=== PATIENT | female | born 1945 | race Asian ===

== ENCOUNTER 2021-01-04 08:47 | Outpatient (CLI) | payer MEDICARE, OTHER, SELFPAY ==
--- NOTE | ~2021-01-04 | DEXA_ITS ---
Bone Density Report Name: Micheal Isabel Age: 75 Sex: Female Ethnicity: Date of : 1945 Indication: osteopenia; height loss; Referring Provider: Sherley Clarke Study: Bone densitometry was performed. Exam Date: January 04, 2021 Accession number: [id number] Bone Density: Region BMD T-score Z-score Classification AP Spine (L1, L2, L3) 0.793 -2.0 0.4 Osteopenia Femoral Neck (Left) 0.620 -2.1 0.1 Osteopenia Total Hip (Left) 0.736 -1.7 0.2 Osteopenia Total Hip Bilateral Avg 0.721 -1.8 0.1 Osteopenia Femoral Neck (Right) 0.627 -2.0 0.2 Osteopenia Total Hip (Right) 0.706 -1.9 0.0 Osteopenia World Health Organization criteria for BMD impression classify patients as: Normal (T-score at or above -1.0), Osteopenia (T-score between -1.0 and -2.5), or Osteoporosis (T-score at or below -2.5). 10-year Fracture Risk(1): Major Osteoporotic Fracture 8.6% Hip Fracture 2.3% Reported Risk Factors: [place] (), Neck BMD=0.620, BMI=25.4 (1) FRAX(R) Version 3.08. Fracture probability calculated for an untreated patient. Fracture probability may be lower if the patient has received treatment. Previous Exams: Region Exam Age BMD T-score BMD Change BMD Change Date g/cm2 vs Baseline vs Previous AP Spine(L1, L2, L3) 01/04/2021 75 0.793 -2.0 -0.021(-2.5%) -0.014(-1.8%) 06/10/2018 73 0.807 -1.9 -0.006(-0.8%) -0.006(-0.8%) 12/06/2015 70 0.813 -1.9 Total Hip(Left) 01/04/2021 75 0.736 -1.7 -0.036(-4.6%)* 0.003(0.4%) 06/10/2018 73 0.732 -1.7 -0.039(-5.0%)* -0.039(-5.0%)* 12/06/2015 70 0.771 -1.4 Total Hip(Right) 01/04/2021 75 0.706 -1.9 -0.047(-6.2%)* -0.013(-1.8%) 06/10/2018 73 0.719 -1.8 -0.034(-4.5%)* -0.034(-4.5%)* 12/06/2015 70 0.753 -1.5 *Denotes significance at 95% confidence level, LSC for AP Spine = 0.022 g/cm2, LSC for Total Hip = 0.027 g/cm2 Clinical Information Provided by Patient: Has used the following medications: Vitamin D, Calcium Patient maximum height was 63 Menopause Age: 51 Drinks caffeinated beverages Onset of menses at age 13 Number of children 2 Impression: The patient has low bone mass, based on the Left Femoral Neck T-score. The patient has an estimated ten-year risk of hip fracture of 2.3% and an estimated ten-year risk of major fracture of 8.6%, based on the WHO FRAX algorithm. No significant bone loss was observed. Discussion: BONE DENSITY IS LOW AT ONE OR MOR
== END 2021-01-04 08:48 | disposition home or self-care (01) ==
LOC: ANHIMG 08:50
PROVIDERS: PCP Family Medicine; Visit Provider Physician Assistant
DX: Z78.0 Asymptomatic menopausal state (principal); M85.89 Other specified disorders of bone density and structure, multiple sites
CPT/HCPCS: 77080

== ENCOUNTER 2021-03-18 19:14 | Emergency (ER) | payer MEDICARE, OTHER, SELFPAY ==
[2021-03-18 19:24] VITALS: BP 137/80; PULSE 91; RESP 16; TEMP 36.7; O2SAT 99
--- NOTE | 2021-03-18 19:33 | ED.GENADULT ---
HPI - General Adult General Chief complaint: Wound/Laceration Stated complaint: insect bite Time Seen by Provider: 03/18/21 19:34 Source: patient, family (spouse (Micheal ok to speak in front of)) and RN notes reviewed Mode of arrival: ambulatory Limitations: no limitations History of Present Illness HPI narrative: 76-year-old [place] female presents with spouse, both complaints of red area and possible insect to right upper arm for the past 2 days. Spouse reports he removed what he believes to be a tick from the patient's RT arm 4 days ago. Nobuko reports she was working outside in [place] prior to the insect being discovered. Hydrocortisone without improvement. Denies new detergent, personal hygiene products or laundry detergents. No new foods or medications. No swelling, burning, bleeding,or drainage. Denies fever, chills, headaches, weakness, fatigue, myalgia, facial swelling, or tongue swelling. Denies dyspnea. Remains active. Tolerating p.o. intake. The patient reports she has not been diagnosed with COVID-19. The patient reports she received 2 Pfizer COVID-19 vaccines. The patient reports she is not waiting for the results of a COVID-19 lab test. The patient reports she does not have fever, chills, or weakness. The patient reports she does not have a new or worsening cough or shortness of breath. Denies chest pain. The patient reports she does not have any rhinorrhea, congestion, sore throat, loss of taste, nausea, vomiting, abdominal pain, and diarrhea. Denies recent traveling. Denies concerns for COVID-19 or exposures. At this time, the patient is not suspected of having COVID-19. Some parts of this dictation were generated by voice recognition software and may contain typographical and/or grammatical inaccuracies. Related Data Home Medications Medication Instructions Recorded Confirmed calcium carbonate 600 mg-vitamin tablet PO 10/30/19 03/02/21 D3 1,000 unit-vitamin K2 90 mcg tab cholecalciferol (vitamin D3) 50 1,000 unit PO DAILY tablet 10/30/19 03/02/21 mcg (2,000 unit) tablet multivitamin 1 tablet PO DAILY 10/30/19 03/02/21 pyridoxine (vitamin B6) 100 mg 100 mg PO DAILY 10/30/19 03/02/21 tablet aspirin [Adult Aspirin] PO 03/18/21 hydrocortisone applic 03/18/21 Allergies Allergy/AdvReac Type Severity Reaction Status Date / Time No Known Allergies Allergy Verified 03/02/21 11:10 Review of Systems Review of Systems: Narrative: CONSTITUTIONAL: Denies fever, chills, sweats. EYES: Denies visual changes, redness, discharge. ENT: Denies otalgia, rhinorrhea, congestion, sore throat. CARDIOVASCULAR: Denies chest pain, palpitations, edema. RESPIRATORY: Denies dyspnea, wheezing, cough. GASTROINTESTINAL: Denies abdominal pain, nausea, vomiting, diarrhea. GENITOURINARY: Denies dysuria, hematuria, abnormal discharge. SKIN: Complaints of red area and possible piece of insect to right upper arm. Denies drainage. MUSCULOSKELETAL: Denies acute back pain, joint pain, or myalgia. NEUROLOGIC: Denies numbness or focal weakness. PSYCHIATRIC: Denies anxiety or depression. All systems reviewed & are unremarkable except as noted in HPI and below. [facility] Past Medical History Medical History (Updated 03/26/21 @ 21:09 by TOI Fuller) Essential (primary) hypertension Mixed hyperlipidemia Osteopenia Overweight (BMI 25.0-29.9) Type 2 diabetes mellitus with other diabetic neurological complication Surgical History Surgical History (Updated 03/18/21 @ 19:46 by TOI Fuller) History of coronary artery stent placement History of left oophorectomy Family History Family History (Updated 03/18/21 @ 19:47 by TOI Fuller) Father , Natural cause Unknown family medical history Mother , Natural cause Unknown family medical history Social History Social History (Updated 03/26/21 @ 21:01 by TOI Fuller) Smoking status: Never smoker Tobacco
--- NOTE | 2021-03-18 20:17 | PC.NURSE ---
[facility] called and medication ordered to [facility] [address].
== END 2021-03-18 20:12 | disposition home or self-care (01) ==
PROVIDERS: Emergency Provider Nurse Practitioner Family; PCP Family Medicine
DX: S40.861A Insect bite (nonvenomous) of right upper arm, initial encounter (principal); W57.XXXA Bitten or stung by nonvenomous insect and other nonvenomous arthropods, initial encounter; I10 Essential (primary) hypertension; E78.2 Mixed hyperlipidemia; M81.0 Age-related osteoporosis without current pathological fracture; E11.42 Type 2 diabetes mellitus with diabetic polyneuropathy; I25.10 Atherosclerotic heart disease of native coronary artery without angina pectoris; Z95.5 Presence of coronary angioplasty implant and graft
CPT/HCPCS: 99213; G0463

== ENCOUNTER 2021-09-13 16:06 | Outpatient (CLI) | payer MEDICARE, OTHER, SELFPAY ==
--- NOTE | ~2021-09-13 | XR_ITS ---
XR knee RT min 4V 09/13/2021 16:37 Indication: Right knee pain Procedure: 5 views right knee Comparison: No prior studies for comparison. Findings: No fracture, subluxation or dislocation. No significant joint effusion. No joint space narr owing. No focal soft tissue abnormality. There is a punctate radiodensity medial to the femoral diaph ysis, possibly calcification or foreign body. Impression: 1: No significant bone or joint abnormality. Reviewed, dictated and finalized at location [facility]. [employer] Impression: 1: No significant bone or joint abnormality.
== END 2021-09-13 16:07 | disposition home or self-care (01) ==
LOC: ANHIMG 16:13
PROVIDERS: PCP Family Medicine; Visit Provider Physician Assistant Medical
DX: M25.561 Pain in right knee (principal)
CPT/HCPCS: 73564

== ENCOUNTER 2022-08-13 09:17 | Outpatient (CLI) | payer MEDICARE, OTHER, SELFPAY ==
[2022-08-13 18:53] LABS: Hemoglobin A1C 6.9 % (<5.7)
[2022-08-13 19:12] LABS: Creatinine Urine 125.3 mg/dL
[2022-08-13 19:16] LABS: MALB Creatinine Ratio 115.7 mg/g (0-30)
[2022-08-13 19:24] LABS: Cholesterol 207 mg/dL (0-200); HDL Direct 39 mg/dL; Triglycerides 435 mg/dL (<150)
[2022-08-13 19:35] LABS: LDL Cholesterol Direct 91 mg/dL
== END 2022-08-13 09:18 | disposition home or self-care (01) ==
LOC: ANHGOSHLAB 09:20
PROVIDERS: PCP Family Medicine; Visit Provider Family Medicine
DX: E78.2 Mixed hyperlipidemia (principal); E11.49 Type 2 diabetes mellitus with other diabetic neurological complication
CPT/HCPCS: 36415; 80061; 82043; 83036

== ENCOUNTER 2022-12-02 15:00 | Emergency (ER) | payer MEDICARE, OTHER, SELFPAY ==
[2022-12-02] VITALS (21 sets, daily range): BP systolic 130–201; BP diastolic 80–95; PULSE 63–81; RESP 13–23; TEMP 36.8; O2SAT 95–100
--- NOTE | ~2022-12-02 | XR_ITS ---
EXAMINATION: XR chest 2V DATE: 12/02/2022 16:26 INDICATION: Left-sided chest pain TECHNIQUE: PA and lateral views of the chest are obtained. COMPARISON: 06/02/2019 FINDINGS: The lungs are free of acute opacities. No pleural effusion or pneumothorax. The cardiomedia stinal silhouette is normal. There is moderate thoracic spondylosis. IMPRESSION: 1. No acute cardiopulmonary abnormality. Reviewed, dictated and finalized at location F. CHAIRMAN
--- NOTE | ~2022-12-02 | CT_ITS ---
EXAMINATION: CTA chest abdomen pelvis DATE: 12/02/2022 20:01 INDICATION: Chest pain radiating to the abdomen TECHNIQUE: Computed tomographic angiography (CTA) of the chest, abdomen, and pelvis was performed wit hout and with 100 mL Omnipque-350 intravenous contrast. Maximum intensity projection 3D-reconstructio ns of the aorta and other arteries were constructed by the technologist on a separate workstation. Th e dose-length product (DLP) was 450.09 mGy-cm. Automated exposure control and iterative reconstructio n technique were employed. COMPARISON: None. FINDINGS: CHEST CTA: No aneurysm or dissection of the thoracic aorta. Calcified coronary artery atherosclerosis is noted. No pleural effusion or pneumothorax. There is mild dependent atelectasis. A calcified nodule of the r ight middle lobe is consistent with old granulomatous disease. No pathologically enlarged thoracic ly mph nodes are identified. The heart size is normal. There is moderate thoracic spondylosis. ABDOMEN AND PELVIS CTA: No aneurysm or dissection of the abdominal aorta. The celiac axis, superior mesenteric artery, and in ferior mesenteric artery are normal at their origins. The left gastric artery arises directly from th e aorta. There are single renal arteries. The liver, spleen, pancreas, gallbladder, and adrenal gland s are normal. Cysts of the kidneys measure up to 3.4 cm on the left. There is a 4 mm nonobstructing s tone of the right kidney. No pathologically enlarged abdominal or pelvic lymph nodes are identified. No free intraperitoneal gas or evidence of bowel obstruction. There is moderate lumbar spondylosis. IMPRESSION: 1. No aneurysm or dissection of the aorta. Reviewed, dictated and finalized at location F. GER OF LEARNING
--- NOTE | 2022-12-02 15:23 | ECG_ITS ---
Measurements Intervals [place] Rate: 73 P: 30 [place]: 176 QRS: 8 QRSD: 90 T: 59 QT: 437 QTc: 483 Interpretive Statements SINUS RHYTHM NORMAL ECG COMPARED TO ECG 06/02/2019 12:42:02 NO SIGNIFICANT CHANGES Electronically Signed On 12-03-2022 9:58:05 OFFICE SPECIALIST by Trenton Power D.O.
[2022-12-02 15:45] LABS: Basophils Percent Auto 0.4 % (0.2-1.2); Eosinophils Absolute Auto 0.1 K/mm3 (0-0.3); Hemoglobin 13.9 g/dL (12.0-15.0); Immature Granulocyte Absolute 0.03 K/mm3 (0.00-0.031); Immature Granulocyte Percent A 0.3 % (0-0.5); Lymphocytes Absolute Auto 2.72 K/mm3 (0.9-3.2); Lymphocytes Percent Auto 30.5 % (18.3-44.2); Mean Corpuscular HGB Conc 33.9 g/dl (32-36); Mean Corpuscular Hemoglobin 32.2 pg (26-34); Mean Corpuscular Volume 94.9 fl (80-100); Mean Platelet Volume 9.5 fl (7.4-10.4); Monocytes Absolute Auto 0.7 K/mm3 (0.1-0.6); Monocytes Percent Auto 7.3 % (2.6-8.5); Neutrophils Absolute Auto 5.4 K/mm3 (1.3-6.7); Neutrophils Percent Auto 60.5 % (45.5-73.1); Platelet Count Result 189 k/mm3 (150-375); Red Blood Count 4.32 M/mm3 (4.2-5.4); Red Cell Distribution Width 12.3 % (11.5-14.5); White Blood Count 8.9 K/mm3 (4.5-10.0)
[2022-12-02 15:56] LABS: Alanine Aminotransferase 22 U/L (6-35); Albumin Level 4.9 g/dL (3.5-5.1); Alkaline Phosphatase 92 U/L (38-126); Anion Gap 11 mmol/L (8-16); Aspartate Amino Transferase 30 U/L (14-36); Bilirubin,Total 1.2 mg/dL (0.2-1.3); Blood Urea Nitrogen 15 mg/dL (7-17); Calcium 9.1 mg/dL (8.4-10.2); Carbon Dioxide 25 mmol/L (22-30); Chloride 106 mmol/L (98-107); Estimated CRCL calculation 36 ml/min; Estimated Glomerular Filt Rate > 60; Glucose 144 mg/dL (65-110); Lipase 111 U/L (23-300); Potassium 3.5 mmol/L (3.4-5.0); Sodium 142 mmol/L (137-145)
[2022-12-02 15:59] LABS: Appearance Urine Clear (Clear); Bilirubin Urine 1+ (Negative); Blood Urine 3+ (Negative); Color Urine Yellow (Yellow); Glucose Urine UA Negative (Negative); Ketones Urine Trace mg/dL (Negative); Leukocyte Esterase Ur Negative LEU/UL (Negative); Nitrate Urine Negative (Negative); Protein Urine 3+ mg/dL (Negative); Specific Grav Ur >= 1.030 (1.001-1.035); Urobilinogen Urine 0.2 mg/dL (<2.0)
[2022-12-02 15:59] LABS: Prothrombin Time 12.8 Seconds (11.1-14.7)
[2022-12-02 16:00] LABS: Partial Thromboplastin Time 28.2 SECONDS (22.3-36.8)
[2022-12-02 16:08] LABS: Troponin I < 0.012 ng/mL (0.000-0.034)
[2022-12-02 16:41] LABS: Add Urine Microscopic? YES
[2022-12-02 16:43] LABS: RBC Urine 51-100 /hpf (0-2)
[2022-12-02 16:44] LABS: Squamous Epithelial Cell Urine Few /hpf (Few); WBC Urine 0-5 /hpf
[2022-12-02 16:45] LABS: Calcium Oxalate Crystals Urine Present /hpf
--- NOTE | 2022-12-02 18:43 | ED.CHESTPAIN ---
HPI - Chest Pain General Chief Complaint: Chest Pain Stated Complaint: abd pain Time Seen by Provider: 12/02/22 18:29 Source: patient, RN notes reviewed and old records reviewed Mode of arrival: ambulatory Limitations: no limitations History of Present Illness HPI narrative: This is a 77 year old female with history of hypertension, hyperlipidemia, CAD s/p stent who presents for evaluation of chest and abdominal pain. Patient states this afternoon developed left chest pain that radiated her left lower abdomen. Her pain lasted a few hours. It has currently resolved. Her reports patient was dry heaving. She denies cough , fever, chills, sob. She reports her coronary stents were placed in the 90s . Related Data Home Medications Medication Instructions Recorded Confirmed cholecalciferol (vitamin D3) 50 1,000 unit PO DAILY 10/30/19 08/14/22 mcg (2,000 unit) tablet multivitamin 1 tablet PO DAILY 10/30/19 08/14/22 pyridoxine (vitamin B6) 100 mg 100 mg PO DAILY 10/30/19 08/14/22 tablet aspirin 81 mg tablet PO 03/18/21 08/14/22 omega 0-tws-ouy-fish oil 1,000 mg 1 cap PO DAILY 08/14/22 08/14/22 (120 mg-180 mg) capsule (Fish Oil) Allergies Allergy/AdvReac Type Severity Reaction Status Date / Time No Known Allergies Allergy Verified 08/14/22 10:08 Review of Systems Constitutional: Constitutional: Denies weakness Cardiovascular: Cardiovascular: Reports chest pain, Denies syncope, Denies rapid heart rate, Denies irregular heart rhythm, Denies leg edema and Denies dyspnea Respiratory: Respiratory: Denies chest congestion, Denies hemoptysis, Denies excessive phlegm production and Denies dyspnea Gastrointestinal: Gastrointestinal: Reports abdominal pain, Denies hematochezia, Denies diarrhea and Denies vomiting Genitourinary: Genitourinary: Denies hematuria and Denies dysuria Musculoskeletal: Musculoskeletal: Denies joint swelling, Denies loss of height and Denies muscle weakness Neurologic: Denies syncope, Denies focal weakness and Denies weakness PMFSH Past Medical History Medical History Essential (primary) hypertension Mixed hyperlipidemia Osteopenia Overweight (BMI 25.0-29.9) Type 2 diabetes mellitus with other diabetic neurological complication Surgical History Surgical History History of coronary artery stent placement History of left oophorectomy Family History Family History Father , Natural cause Unknown family medical history Mother , Natural cause Unknown family medical history Social History Social History Smoking status: Never smoker Second hand tobacco smoke exposure: No Alcohol intake: current Substance use: never Lack of Transportation: No Lack of Food: Never True Current Housing: Decline to Answer Concerned About Future Housing: Decline to Answer Difficulty Paying Gas/Electric Bills: No Difficulty Paying for Meds: No Currently Unemployed: No Education: High School Diploma/GED Difficulty w/ Childcare or Family Care: No Living arrangements: with family Occupation/Education: retired Gender identity (if verbalized by the patient): Female Sexual Orientation (if Verbalized by the Patient): Straight or Heterosexual Exam Const: General: alert Nutritional Appearance: well nourished Orientation/consciousness: patient oriented x3 HENMT: Head: normal to inspection Face and sinus: normal facial exam Eyes: EOM: EOMs intact bilaterally Neck: Neck: normal visual inspection Chest: Chest palpation & inspection: normal inspection of the chest Resp: Effort & Inspection: normal respiratory effort Auscultation: clear to auscultation bilaterally Cardio: Rate: regular rate Rhythm: regular rhythm Heart soun
[2022-12-02] MEDS: ASPIRIN 81 MG CHEWABLE TABLET 324 MG PO (19:03)
[2022-12-02 19:15] LABS: Troponin I < 0.012 ng/mL (0.000-0.034)
== END 2022-12-02 22:00 | disposition home or self-care (01) ==
PROVIDERS: Emergency Medicine; Emergency Provider General Practice; PCP Family Medicine
DX: N20.0 Calculus of kidney (principal); R07.89 Other chest pain; R10.32 Left lower quadrant pain; I10 Essential (primary) hypertension; E78.5 Hyperlipidemia, unspecified; E11.9 Type 2 diabetes mellitus without complications
CPT/HCPCS: 36415; 71046; 71275; 74174; 80053; 81001; 83690; 84484; 85025; 85610; 85730; 93005; 99284; A9270; Q9967

== ENCOUNTER 2022-12-10 09:08 | Outpatient (CLI) | payer MEDICARE, OTHER, SELFPAY ==
[2022-12-10 18:27] LABS: Hematocrit 42.6 % (37.0-47.0); Hemoglobin 14.2 g/dL (12.0-15.0); Mean Corpuscular HGB Conc 33.3 g/dl (32-36); Mean Corpuscular Hemoglobin 32.4 pg (26-34); Mean Corpuscular Volume 97.3 fl (80-100); Mean Platelet Volume 9.9 fl (7.4-10.4); Platelet Count Result 245 k/mm3 (150-375); Red Blood Count 4.38 M/mm3 (4.2-5.4); Red Cell Distribution Width 12.7 % (11.5-14.5); White Blood Count 5.8 K/mm3 (4.5-10.0)
[2022-12-10 20:15] LABS: Alanine Aminotransferase 27 U/L (6-35); Albumin Level 5.1 g/dL (3.5-5.1); Alkaline Phosphatase 82 U/L (38-126); Anion Gap 8 mmol/L (8-16); Aspartate Amino Transferase 57 U/L (14-36); Blood Urea Nitrogen 11 mg/dL (7-17); Calcium 9.2 mg/dL (8.4-10.2); Carbon Dioxide 30 mmol/L (22-30); Chloride 100 mmol/L (98-107); Cholesterol 228 mg/dL (0-200); Estimated Glomerular Filt Rate > 60; Glucose 119 mg/dL (65-110); HDL Direct 51 mg/dL; Potassium 3.6 mmol/L (3.4-5.0); Sodium 138 mmol/L (137-145); Triglycerides 285 mg/dL (<150)
[2022-12-10 20:21] LABS: Vitamin D 25 Hydroxy 52.9 ng/mL
[2022-12-10 20:26] LABS: LDL Cholesterol Direct 106 mg/dL
[2022-12-10 20:28] LABS: Microalbumin Urine Random 60.3 mg/L (0-16.7)
[2022-12-10 20:29] LABS: MALB Creatinine Ratio 61.5 mg/g (0-30)
[2022-12-10 20:35] LABS: Hemoglobin A1C 6.2 % (<5.7)
== END 2022-12-10 09:09 | disposition home or self-care (01) ==
LOC: ANHGOSHLAB 09:09
PROVIDERS: PCP Family Medicine; Visit Provider Nurse Practitioner
DX: Z13.29 Encounter for screening for other suspected endocrine disorder (principal); R41.3 Other amnesia; E78.5 Hyperlipidemia, unspecified; Z13.21 Encounter for screening for nutritional disorder; E11.9 Type 2 diabetes mellitus without complications; E55.9 Vitamin D deficiency, unspecified
CPT/HCPCS: 36415; 80053; 80061; 82043; 82306; 83036; 84443; 85027

== ENCOUNTER 2023-04-22 08:58 | Outpatient (CLI) | payer MEDICARE, OTHER, SELFPAY ==
[2023-04-22 21:07] LABS: Alanine Aminotransferase 20 U/L (6-35); Albumin Level 4.6 g/dL (3.5-5.1); Alkaline Phosphatase 70 U/L (38-126); Anion Gap 10 mmol/L (8-16); Aspartate Amino Transferase 48 U/L (14-36); Bilirubin,Total 1.9 mg/dL (0.2-1.3); Blood Urea Nitrogen 17 mg/dL (7-17); Calcium 9.1 mg/dL (8.4-10.2); Carbon Dioxide 28 mmol/L (22-30); Chloride 102 mmol/L (98-107); Cholesterol 179 mg/dL (0-200); Estimated Glomerular Filt Rate > 60; Glucose 120 mg/dL (65-110); HDL Direct 51 mg/dL; Potassium 3.8 mmol/L (3.4-5.0); Sodium 140 mmol/L (137-145); Triglycerides 219 mg/dL (<150)
[2023-04-22 21:18] LABS: LDL Cholesterol Direct 73 mg/dL
[2023-04-22 22:09] LABS: Hemoglobin A1C 6.3 % (<5.7)
== END 2023-04-22 08:59 | disposition home or self-care (01) ==
LOC: ANHGOSHLAB 09:01
PROVIDERS: PCP Family Medicine; Visit Provider Family Medicine
DX: E11.9 Type 2 diabetes mellitus without complications (principal); E78.5 Hyperlipidemia, unspecified; Z79.899 Other long term (current) drug therapy
CPT/HCPCS: 36415; 80053; 80061; 83036

== ENCOUNTER 2023-04-30 12:24 | Outpatient (CLI) | payer MEDICARE, OTHER, SELFPAY ==
--- NOTE | 2023-04-30 12:28 | ECG_ITS ---
Measurements Intervals [place] Rate: 86 P: 38 NE: 165 QRS: 37 QRSD: 86 T: 61 QT: 393 QTc: 471 Interpretive Statements SINUS RHYTHM POSSIBLE LEFT ATRIAL ENLARGEMENT [-0.1mV P WAVE IN V1/V2] COMPARED TO ECG 12/02/2022 15:28:36 NO SIGNIFICANT CHANGES Electronically Signed On 04-30-2023 13:51:31 CDT by Bibiana Lisa M.D.
== END 2023-04-30 12:25 | disposition home or self-care (01) ==
PROVIDERS: PCP Family Medicine; Visit Provider Family Medicine
DX: R07.9 Chest pain, unspecified (principal)
CPT/HCPCS: 93005

== ENCOUNTER 2023-05-24 13:34 | Outpatient (CLI) | payer MEDICARE, OTHER, SELFPAY ==
[2023-05-24 18:16] LABS: Alanine Aminotransferase 24 U/L (6-35); Albumin Level 4.7 g/dL (3.5-5.1); Alkaline Phosphatase 79 U/L (38-126); Aspartate Amino Transferase 65 U/L (14-36); Bilirubin,Total 1.5 mg/dL (0.2-1.3)
== END 2023-05-24 13:35 | disposition home or self-care (01) ==
LOC: ANHGOSHLAB 13:37
PROVIDERS: PCP Family Medicine; Visit Provider Family Medicine
DX: R74.8 Abnormal levels of other serum enzymes (principal)
CPT/HCPCS: 36415; 80076

== ENCOUNTER 2023-06-06 08:24 | Outpatient (CLI) | payer MEDICARE, OTHER, SELFPAY ==
--- NOTE | 2023-06-06 08:38 | ECHO_ITS ---
Patient Info Name: Micheal Isabel Age: 78 years : 1945 Gender: Female Ht: 63 in Wt: 139 lbs BSA: 1.68 m2 HR: 72 bpm BP: 174 / 103 mmHg Technical Quality: Fair Exam Date: 06/06/2023 8:42 AM Exam Location: [facility] Patient Status: Outpatient Admit Date: 06/06/2023 Staff Ordering Physician: Zina Landeros DO Supervisor Cloth Winding: Alka Gary RDCS Attending Provider: Zina Landeros DO Referring Physician: Leti MEDLEY; Exam Type: CA echo doppler color flow Study Info Indications R07.9 - Chest pain, unspecified Complete two-dimensional, color flow and Doppler transthoracic echocardiogram is performed. Summary 1. Complete two-dimensional, color flow and Doppler transthoracic echocardiogram is performed. 2. Left ventricular chamber dimension is normal. 3. Left ventricular systolic function is normal, estimated at 60-65%. 4. There is mild concentric increased left ventricular wall thickness. 5. The left ventricular diastolic function is grade I diastolic dysfunction. 6. E/e' 16 is elevated. 7. Global longitudinal strain is normal at -17.2%. 8. Left atrial chamber dimension is mildly enlarged. 9. There is mild aortic valve sclerosis. 10. The mitral valve has mildly calcified leaflets and moderately calcified annulus. 11. There is trace tricuspid valve regurgitation. 12. No pulmonary hypertension, estimated pulmonary arterial systolic pressure is 28 mmHg. Left Ventricle E/e' 16 is elevated. Global longitudinal strain is normal at -17.2%. Left ventricular chamber dimension is normal. Left ventricular systolic function is normal, estimated at 60-65%. There is mild concentric increased left ventricular wall thickness. The left ventricular diastolic function is grade I diastolic dysfunction. Right Ventricle Right ventricular systolic function is normal and with normal TAPSE 2.0 cm. Right ventricular chamber dimension is normal. Left Atria Left atrial chamber dimension is mildly enlarged. Right Atria Right atrial chamber dimension is normal. Aortic Valve The aortic valve is trileaflet. There is mild aortic valve sclerosis. There is no aortic valve stenosis. There is no aortic valve regurgitation. Pulmonic Valve There is no pulmonic regurgitation. Mitral Valve The mitral valve has mildly calcified leaflets and moderately calcified annulus. There is no mitral valve stenosis. There is no mitral valve regurgitation. Tricuspid Valve There is trace tricuspid valve regurgitation. No pulmonary hypertension, estimated pulmonary arterial systolic pressure is 28 mmHg. Pericardium/Pleural There is no pericardial effusion. Inferior Vena Cava Normal inferior vena cava with >50% collapse upon inspiration consistent with normal right atrial pressure, 5 mmHg. Aorta The aortic root size at the sinus of Valsalva is normal. Left Ventricular Outflow Tract Name Value Normal LVOT 2D LVOT Diameter 2.0 cm LVOT Doppler LVOT Peak Gradient 3 mmHg LVOT Mean Gradient 2 mmHg LVOT VTI 19 cm LVOT VTI/AV VTI Ratio 0.9 LVOT Stroke Volume 59 ml
== END 2023-06-06 08:25 | disposition home or self-care (01) ==
LOC: ANHCARD 08:25
PROVIDERS: PCP Family Medicine; Visit Provider Family Medicine
DX: R07.9 Chest pain, unspecified (principal)
CPT/HCPCS: 93306

== ENCOUNTER 2023-09-09 08:51 | Outpatient (CLI) | payer MEDICARE, OTHER, SELFPAY ==
[2023-09-09 19:32] LABS: Hepatitis B Surface Antigen Negative (Negative)
[2023-09-09 19:38] LABS: HAV RESULT Negative (Negative); Hepatitis B Core IgM Result Negative (Negative)
[2023-09-09 19:50] LABS: Hepatitis C Virus Antibody Negative (Negative)
[2023-09-09 19:59] LABS: Iron 126 ug/dL (37-170)
[2023-09-09 20:07] LABS: Alanine Aminotransferase 22 U/L (6-35); Albumin Level 4.4 g/dL (3.5-5.1); Alkaline Phosphatase 71 U/L (38-126); Aspartate Amino Transferase 41 U/L (14-36); Bilirubin,Total 1.3 mg/dL (0.2-1.3)
[2023-09-09 20:11] LABS: Percent Iron Saturation 43 % (20-50)
[2023-09-12 06:15] LABS: Mitochondrial (M2) Ab (IgG) <=20.0 U (<=20.0)
== END 2023-09-09 08:52 | disposition home or self-care (01) ==
LOC: ANHGOSHLAB 08:54
PROVIDERS: PCP Family Medicine; Visit Provider Family Medicine
DX: R74.8 Abnormal levels of other serum enzymes (principal); R17 Unspecified jaundice; Z79.899 Other long term (current) drug therapy
CPT/HCPCS: 36415; 80074; 80076; 82728; 83520; 83540; 83550

== ENCOUNTER 2023-12-17 01:23 | Day surgery (SDC) | payer MEDICARE, OTHER, SELFPAY ==
[2023-10-14 11:43] VITALS: BMI 23.0
--- NOTE | 2023-11-05 10:17 | SUR.PREOP ---
Patient called regarding upcoming procedure. Reviewed preop instructions, appointment times, and procedure prep.
[2023-12-09 14:24] VITALS: BMI 23.0
[2023-12-17 10:02] VITALS: BP 111/96; PULSE 102; RESP 20; TEMP 36.4; O2SAT 97
[2023-12-17] MEDS: LACTATED RINGERS 1,000 ML 150 ML IV CONT (10:16)
[2023-12-17 10:17] LABS: Glucose Point of Care 158 mg/dl (65-105)
--- NOTE | 2023-12-17 10:40 | WPDANESEPPF ---
Anes - Initial Pre Proc Eval Procedure: Operation Date: 12/17/23 11:30 Proposed Procedures p Colonoscopy - Tin Carrion MD Date/Time: 12/17/23 10:40 Surgeon: Tin Carrion MD Pre Op Diagnosis: hx of colon polyps Patient Data Age: 78 Gender: F Height: 1.6 m Weight: 61.7 kg Last Vital Signs Temp 97.5 F L 12/17/23 10:02 Pulse 102 H 12/17/23 10:02 Resp 20 12/17/23 10:02 BP 111/96 H 12/17/23 10:02 Pulse Ox 97 12/17/23 10:02 O2 Del Method Room Air 12/17/23 10:02 Allergies Allergy/AdvReac Type Severity Reaction Status Date / Time No Known Allergies Allergy Verified 12/17/23 10:01 Home Medications Medication Instructions Recorded Confirmed Type cholecalciferol (vitamin D3) 50 1,000 unit PO DAILY 10/30/19 10/14/23 History mcg (2,000 unit) tablet multivitamin 1 tablet PO DAILY 10/30/19 10/14/23 History pyridoxine (vitamin B6) 100 mg 100 mg PO DAILY 10/30/19 10/14/23 History tablet omega 7-dwx-rzd-fish oil 1,000 mg 1 cap PO DAILY 08/14/22 10/14/23 History (120 mg-180 mg) capsule (Fish Oil) aspirin 81 mg tablet 81 mg PO DAILY 02/01/23 10/14/23 History atorvastatin 20 mg tablet 20 mg PO DAILY 02/01/23 10/14/23 History losartan 50 mg tablet See Rx Instructions .Route 05/01/23 10/14/23 Rx .COMPLEX #90 tabs metformin 500 mg tablet See Rx Instructions .Route 05/01/23 10/14/23 Rx .COMPLEX #180 tabs Laboratory Tests 12/17/23 10:09 POC Capillary Glucose 158 H mg/dl (65-105) Patient hx anesthesia problems: none Family hx anesthesia problems: none Results Review: All pre-operative results and documents have been reviewed as part of the pre-operative evaluation. [facility] Past Medical History Medical History (Updated 09/10/23 @ 09:36 by Ofelia Pineda, COUNTER WEIGHER-C) Essential (primary) hypertension Mixed hyperlipidemia Osteopenia Overweight (BMI 25.0-29.9) Type 2 diabetes mellitus with other diabetic neurological complication Surgical History Surgical History History of coronary artery stent placement History of left oophorectomy Family History Family History Father , Natural cause Unknown family medical history Mother , Natural cause Unknown family medical history Social History Social History Smoking status: Never smoker Second hand tobacco smoke exposure: No Alcohol intake: never Substance use: never Substance use type: does not use Lack of Transportation: No Lack of Food: Never True Current Housing: Decline to Answer Concerned About Future Housing: Decline to Answer Difficulty Paying Gas/Electric Bills: No Difficulty Paying for Meds: No Currently Unemployed: No Education: High School Diploma/GED Difficulty w/ Childcare or Family Care: No Living arrangements: with family Additional living arrangements comments: with sp Occupation/Education: retired Gender identity (if verbalized by the patient): Female Sexual Orientation (if Verbalized by the Patient): Straight or Heterosexual Spiritual care concerns: No Anes - Eval Final PreProcedure Day of Procedure 12/17/23 10:40 Patient weight: normal Heart: regular rate and rhythm Lungs: clear to auscultation Airway: Mallampati scale class II Neurological: alert and oriented Last oral intake: >/= 8 hours ASA classification: III Emergent: no Anesthetic plan: proceed Anesthesia type and monitoring: general GIVS and standard monitoring Results Review: All pre-operative results and documents have been reviewed as part of the pre-operative evaluation. Informed Consent: The patient's anesthetic plan and its attendant risks and benefits were discussed with the patient/family/POA. Questions were solicited and answers provided to the satisfaction of
--- NOTE | 2023-12-17 11:03 | PM.HPGS ---
History of Present Illness History of Present Illness Consent: Risks, benefits, and alternatives have been discussed and questions answered. Patient agrees to proceed with procedure. Chief complaint: hx of colon polyps Narrative: Micheal Isabel is a 78 year old female with colon polyp in 2017 Review of Systems Review of Systems: All systems reviewed & are unremarkable except as noted in HPI and below PMFSH Past Medical History Medical History (Updated 09/10/23 @ 09:36 by URI Hidalgo) Essential (primary) hypertension Mixed hyperlipidemia Osteopenia Overweight (BMI 25.0-29.9) Type 2 diabetes mellitus with other diabetic neurological complication Surgical History Surgical History History of coronary artery stent placement History of left oophorectomy Family History Family History Father , Natural cause Unknown family medical history Mother , Natural cause Unknown family medical history Social History Social History Smoking status: Never smoker Second hand tobacco smoke exposure: No Alcohol intake: never Substance use: never Substance use type: does not use Lack of Transportation: No Lack of Food: Never True Current Housing: Decline to Answer Concerned About Future Housing: Decline to Answer Difficulty Paying Gas/Electric Bills: No Difficulty Paying for Meds: No Currently Unemployed: No Education: High School Diploma/GED Difficulty w/ Childcare or Family Care: No Living arrangements: with family Additional living arrangements comments: with sp Occupation/Education: retired Gender identity (if verbalized by the patient): Female Sexual Orientation (if Verbalized by the Patient): Straight or Heterosexual Spiritual care concerns: No Meds Home Medications and Allergies Home Medications Medication Instructions Recorded Confirmed Type cholecalciferol (vitamin D3) 50 1,000 unit PO DAILY 10/30/19 10/14/23 History mcg (2,000 unit) tablet multivitamin 1 tablet PO DAILY 10/30/19 10/14/23 History pyridoxine (vitamin B6) 100 mg 100 mg PO DAILY 10/30/19 10/14/23 History tablet omega 1-aep-xdn-fish oil 1,000 mg 1 cap PO DAILY 08/14/22 10/14/23 History (120 mg-180 mg) capsule (Fish Oil) aspirin 81 mg tablet 81 mg PO DAILY 02/01/23 10/14/23 History atorvastatin 20 mg tablet 20 mg PO DAILY 02/01/23 10/14/23 History losartan 50 mg tablet See Rx Instructions .Route 05/01/23 10/14/23 Rx .COMPLEX #90 tabs metformin 500 mg tablet See Rx Instructions .Route 05/01/23 10/14/23 Rx .COMPLEX #180 tabs Allergies Allergy/AdvReac Type Severity Reaction Status Date / Time No Known Allergies Allergy Verified 12/17/23 10:01 Vital Signs Vital Signs - 24 hr 12/17/23 10:02 Temperature 97.5 F L Pulse Rate 102 H Respiratory Rate 20 Blood Pressure 111/96 H Pulse Oximetry 97 Oxygen Delivery Room Air Exam Const: General: comfortable and no acute distress HENMT: Face/Nose/Sinus: Normal nares present Eyes: General: appearance normal, both eyes and all related structures Neck: Neck: no JVD Resp: Auscultation: clear to auscultation bilaterally Cardio: Rate: regular rate Rhythm: regular rhythm GI: Inspection: non-distended GI Palp: Yes Soft to palpation Skin: General skin exam: normal color Neuro: General: gait normal Speech: normal speech Extrem: General: normal to inspection Psych: Mental Status: mental status grossly normal Assessment and Plan Assessment and plan (1) Hx of colonic polyps: Code(s): Z86.010 - Personal history of colonic polyps Status: Acute Assessment and Plan: colonoscopy
[2023-12-17 11:28] VITALS: BP 97/63; PULSE 81; RESP 24; O2SAT 97
[2023-12-17 11:38] VITALS: BP 102/65; PULSE 75; RESP 19; O2SAT 100
[2023-12-17 11:48] VITALS: BP 110/61; PULSE 69; RESP 21; O2SAT 98
== END 2023-12-17 11:52 | disposition home or self-care (01) ==
PROVIDERS: PCP Family Medicine; Visit Provider Internal Medicine Gastroenterology
PROC: 0DJD8ZZ Inspection of Lower Intestinal Tract, Via Natural or Artificial Opening Endoscopic (ICD-10-PCS; CPT 45378; principal; 2023-12-17 11:30)
DX: Z12.11 Encounter for screening for malignant neoplasm of colon (principal); D12.3 Benign neoplasm of transverse colon; D12.5 Benign neoplasm of sigmoid colon; K57.30 Diverticulosis of large intestine without perforation or abscess without bleeding; I10 Essential (primary) hypertension; E78.2 Mixed hyperlipidemia; E11.49 Type 2 diabetes mellitus with other diabetic neurological complication; M85.80 Other specified disorders of bone density and structure, unspecified site; Z79.82 Long term (current) use of aspirin; Z79.84 Long term (current) use of oral hypoglycemic drugs; Z98.890 Other specified postprocedural states; Z95.5 Presence of coronary angioplasty implant and graft
CPT/HCPCS: 45385; 82948; 88305; J2704; J7120

== ENCOUNTER 2024-01-10 08:36 | Outpatient (CLI) | payer MEDICARE, OTHER, SELFPAY ==
[2024-01-10 12:37] LABS: Hematocrit 42.3 % (37.0-47.0); Mean Corpuscular HGB Conc 33.1 g/dl (32-36); Mean Corpuscular Hemoglobin 31.6 pg (26-34); Mean Corpuscular Volume 95.5 fl (80-100); Mean Platelet Volume 9.9 fl (7.4-10.4); Platelet Count Result 201 k/mm3 (150-375); Red Blood Count 4.43 M/mm3 (4.2-5.4); Red Cell Distribution Width 12.3 % (11.5-14.5); White Blood Count 5.3 K/mm3 (4.5-10.0)
[2024-01-10 13:43] LABS: Alanine Aminotransferase 21 U/L (6-35); Albumin Level 4.5 g/dL (3.5-5.1); Alkaline Phosphatase 78 U/L (38-126); Anion Gap 7 mmol/L (4-12); Aspartate Amino Transferase 47 U/L (14-36); Bilirubin,Total 1.6 mg/dL (0.2-1.3); Blood Urea Nitrogen 13 mg/dL (7-17); Calcium 9.4 mg/dL (8.4-10.2); Carbon Dioxide 28 mmol/L (22-30); Chloride 104 mmol/L (98-107); Cholesterol 243 mg/dL (0-200); Estimated Glomerular Filt Rate > 60; Glucose 140 mg/dL (65-110); HDL Direct 38 mg/dL; LDL Cholesterol Direct 90 mg/dL; Potassium 3.9 mmol/L (3.4-5.0); Sodium 139 mmol/L (137-145)
[2024-01-10 14:16] LABS: Creatinine Urine 193.4 mg/dL
[2024-01-10 14:20] LABS: MALB Creatinine Ratio 50.3 mg/g (0-30); Microalbumin Urine Random 97.3 mg/L (0-16.7)
[2024-01-10 14:37] LABS: Vitamin D 25 Hydroxy 34.2 ng/mL
[2024-01-10 14:39] LABS: Hemoglobin A1C 6.3 % (<5.7)
[2024-01-10 15:30] LABS: Triglycerides 621 mg/dL (<150)
== END 2024-01-10 08:37 | disposition home or self-care (01) ==
LOC: ANHGOSHLAB 08:38
PROVIDERS: PCP Family Medicine; Visit Provider Nurse Practitioner
DX: E55.9 Vitamin D deficiency, unspecified (principal); E11.9 Type 2 diabetes mellitus without complications; R41.3 Other amnesia; Z79.899 Other long term (current) drug therapy
CPT/HCPCS: 36415; 80053; 80061; 82043; 82306; 83036; 84443; 85027

== ENCOUNTER 2024-02-12 11:47 | Outpatient (CLI) | payer MEDICARE, OTHER, SELFPAY ==
[2024-02-12 19:10] LABS: Prothrombin Time 13.5 Seconds (11.1-14.7)
== END 2024-02-12 11:48 | disposition home or self-care (01) ==
PROVIDERS: PCP Family Medicine; Visit Provider Nurse Practitioner
DX: Z79.01 Long term (current) use of anticoagulants (principal)
CPT/HCPCS: 36415; 85610

== ENCOUNTER 2024-02-12 13:10 | Outpatient (CLI) | payer MEDICARE, OTHER, SELFPAY ==
--- NOTE | ~2024-02-12 | DEXA_ITS ---
Bone Density Report Name: ROWENA IBANEZ Age: 79 Sex: Female Ethnicity: Date of : 1945 Indication: postmenopausal; screening for osteoporosis; height loss; Referring Provider: Ofelia Pineda Study: Bone densitometry was performed. Exam Date: February 12, 2024 Accession number: [id number] Bone Density: Region BMD T-score Z-score Classification AP Spine (L1, L2, L3) 0.781 -2.2 0.5 Osteopenia Femoral Neck (Left) 0.614 -2.1 0.2 Osteopenia Total Hip (Left) 0.688 -2.1 0.0 Osteopenia Femoral Neck (Right) 0.607 -2.2 0.1 Osteopenia Total Hip (Right) 0.678 -2.2 -0.1 Osteopenia Total Hip Mean 0.683 -2.2 -0.1 Osteopenia World Health Organization criteria for BMD impression classify patients as: Normal (T-score at or above -1.0), Osteopenia (T-score between -1.0 and -2.5), or Osteoporosis (T-score at or below -2.5). 10-year Fracture Risk(1): Major Osteoporotic Fracture 9.8% Hip Fracture 3.0% Reported Risk Factors: [place] (), Neck BMD=0.607, BMI=23.6 (1) FRAX(R) Version 3.08. Fracture probability calculated for an untreated patient. Fracture probability may be lower if the patient has received treatment. Clinical Information Provided by Patient: Patient maximum height was 63 Menopause Age: 51 No regular weight bearing exercise Does not regularly consume dairy products Drinks caffeinated beverages Onset of menses at age 13 Number of children 2 Impression: The patient has low bone mass, based on the Total Spine T-score. The patient has an estimated ten-year risk of hip fracture of 3% and an estimated ten-year risk of major fracture of 9.8%, based on the WHO FRAX algorithm. Discussion: BONE DENSITY IS LOW AT ONE OR MORE SKELETAL SITES. THE PATIENT'S BMD AND CLINICAL RISK FACTORS CONTRIBUTE TO THIS PATIENT'S INCREASED RISK OF FRACTURE. This patient's lowest T-score is low at one or more skeletal sites. It meets the World Health Organization's (WHO) criteria for ?low bone mass? (T-score between -1.0 and -2.5). The patient's 10-year risk of hip fracture as calculated by FRAX exceeds the threshold where pharmacological therapy is recommended by the National Osteoporosis Foundation (NOF). However, all treatment decisions require clinical judgment and consideration of individual patient factors, including patient preferences, comorbidities, previous drug use, risk factors not captured in the FRAX model (e.g., frailty, falls, vitamin D deficiency, increased bone turnover, interval significant decline in bone density) and possible under or overestimation of fracture risk by FRAX. The patient should follow a healthful lifestyle (good nutrition with adequate calcium and vitamin D, and appropriate weight-bearing exercise). Follow-Up: Consider a repeat BMD and Vertebral Fracture Assessment (VFA)
--- NOTE | ~2024-02-12 | MM_ITS ---
EXAMINATION: MM screening tomer BI w natacha HISTORY: Screening mammogram TECHNIQUE: Craniocaudal and mediolateral oblique 3-D tomosynthesis images were obtained and synthetic 2-D images were generated. CAD analysis was submitted and interpreted. COMPARISON: 06/10/2018 bilateral screening mammogram BREAST PARENCHYMAL COMPOSITION: There are scattered areas of fibroglandular density. FINDINGS: There is no evidence of suspicious mass, calcification, or architectural distortion to sugg est malignancy in either breast. There has been no suspicious interval change. IMPRESSION: 1. No mammographic evidence of malignancy. 2. Recommend routine screening mammography in one year. BI-RADS Category 1: Negative Reviewed, dictated and finalized at location B.
== END 2024-02-12 13:11 ==
LOC: MICIMG 13:11
PROVIDERS: PCP Family Medicine; Visit Provider Nurse Practitioner
DX: Z12.31 Encounter for screening mammogram for malignant neoplasm of breast (principal); M85.88 Other specified disorders of bone density and structure, other site
CPT/HCPCS: 77063; 77067; 77080

== ENCOUNTER 2024-02-18 11:25 | Emergency (ER) | payer MEDICARE, OTHER, SELFPAY ==
[2024-02-18] VITALS (13 sets, daily range): BP systolic 134–161; BP diastolic 72–87; PULSE 69–90; RESP 13–19; TEMP 36.6–36.8; O2SAT 98–100
--- NOTE | ~2024-02-18 | CT_ITS ---
EXAMINATION: CT abdomen pelvis w con DATE: 02/18/2024 13:16 INDICATION: Sudden onset of left flank pain. Suprapubic abdominal pain. TECHNIQUE: Computed tomography (CT) of the abdomen and pelvis was performed with 100 CC Omnipaque 350 intravenous contrast. Automated exposure control and iterative reconstruction technique were employe d. Exam dose: 274.42 mGy-cm total exam DLP. COMPARISON: 12/03/2022 CTA chest abdomen pelvis FINDINGS: Prominent calcified granuloma at the base of the lingula. Cardiomegaly. No pericardial or pleural effusion. There is diffuse hepatic steatosis. Otherwise the liver, gallbladder, bile ducts, pancreas, pancreati c duct and spleen are unremarkable. Occasional bilateral renal cysts, measuring up to 2.9 cm on the right, 3.4 cm on the left. Approximately 2 mm and 2.4 mm nonobstructing right renal calculi. 2.5 x 4 mm left ureterovesical junction calculus with mild left hydroureteronephrosis. The urinary bl adder otherwise is unremarkable. Possible large soft tissue mass of the cervix and body of the uterus. Consider pelvic ultrasound exam ination. There is evidence of a calcified uterine fibroid. Diverticulosis of the left and right colon; no CT evidence of diverticulitis is detected. No bowel ob struction, bowel wall thickening, pneumatosis or intraperitoneal free air. There is atherosclerotic calcification but normal caliber of the abdominal aorta and iliac and femora l arteries. No intraperitoneal or retroperitoneal or pelvic mass lesion or adenopathy or ascites is n oted other than possible uterine cervical and body mass suggested above. IMPRESSION: 2.5 x 4 mm left ureterovesical junction obstructing calculus with mild left hydrouretero nephrosis Mild right nonobstructive nephrolithiasis Occasional bilateral renal cysts Possible large uterine cervical in body soft tissue mass; uterine malignancy is not excluded Calcified uterine fibroid Hepatic steatosis Cardiomegaly Diverticulosis of left or right colon; no evidence of diverticulitis Reviewed, dictated and finalized at Location A. Reviewed, dictated and finalized at location B. IMPRESSION: 2.5 x 4 mm left ureterovesical junction obstructing calculus with mild left hydroureteronephrosis Mild right nonobstructive nephrolithiasis Occasional bilateral renal cysts Possible large uterine cervical in body soft tissue mass; uterine malignancy is not excluded Calcified uterine fibroid Hepatic steatosis Cardiomegaly Diverticulosis of left or right colon; no evidence of diverticulitis
--- NOTE | ~2024-02-18 | XR_ITS ---
EXAMINATION: XR abdomen/kub 1V DATE: 02/18/2024 15:14 INDICATION: Stone at left ureterovesicular junction. TECHNIQUE: A supine view of the abdomen was obtained. COMPARISON: CT abdomen and pelvis 02/18/2024 FINDINGS: There are no dilated loops of bowel. There is contrast in the renal collecting system. Ther e is mild left hydronephrosis and hydroureter. IMPRESSION: 1. Mild left hydronephrosis and hydroureter. Reviewed, dictated and finalized at location A.
[2024-02-18 11:55] LABS: Basophils Percent Auto 0.4 % (0.2-1.2); Eosinophils Percent Auto 0.3 % (0-4.4); Hematocrit 45.4 % (37.0-47.0); Hemoglobin 15.3 g/dL (12.0-15.0); Immature Granulocyte Absolute 0.05 K/mm3 (0.00-0.031); Immature Granulocyte Percent A 0.4 % (0-0.5); Lymphocytes Absolute Auto 3.03 K/mm3 (0.9-3.2); Lymphocytes Percent Auto 26.6 % (18.3-44.2); Mean Corpuscular HGB Conc 33.7 g/dl (32-36); Mean Corpuscular Hemoglobin 32.1 pg (26-34); Mean Corpuscular Volume 95.2 fl (80-100); Mean Platelet Volume 9.9 fl (7.4-10.4); Monocytes Absolute Auto 0.9 K/mm3 (0.1-0.6); Monocytes Percent Auto 7.9 % (2.6-8.5); Neutrophils Absolute Auto 7.3 K/mm3 (1.3-6.7); Neutrophils Percent Auto 64.4 % (45.5-73.1); Platelet Count Result 216 k/mm3 (150-375); Red Blood Count 4.77 M/mm3 (4.2-5.4); White Blood Count 11.4 K/mm3 (4.5-10.0)
[2024-02-18 12:02] LABS: Appearance Urine Clear (Clear); Bacteria Urine None Seen /hpf; Bilirubin Urine Negative (Negative); Blood Urine Negative (Negative); Color Urine Dark Yellow (Yellow); Glucose Urine UA Negative (Negative); Ketones Urine Trace mg/dL (Negative); Leukocyte Esterase Ur 1+ LEU/UL (Negative); Nitrate Urine Negative (Negative); Protein Urine 1+ mg/dL (Negative); RBC Urine 0-2 /hpf (0-2); Specific Grav Ur 1.024 (1.001-1.035); Squamous Epithelial Cell Urine Occasional /hpf (Few)
--- NOTE | 2024-02-18 12:05 | ED.ABDPAIN ---
HPI - Abdominal Pain General Chief Complaint: Abdominal Pain <Annika Huitron PA-C - Last Filed: 02/18/24 17:58> Stated Complaint: llq pain <Annika Huitron PA-C - Last Filed: 02/18/24 17:58> Time Seen by Provider: 02/18/24 11:44 <Annika Huitron PA-C - Last Filed: 02/18/24 17:58> History of Present Illness HPI narrative: 79-year-old female with a history of hypertension, hyperlipidemia, DM, memory loss presents to the emergency department with her at bedside for left sided abdominal pain that started around 10:30 this morning while eating toast. Patient's assists with history. States the patient had some dry heaving yesterday and felt generally unwell. Today began having pain in her left side which seems to have resolved upon my evaluation. She is now reporting pain to suprapubic region. She denies fever, current nausea or vomiting, diarrhea, obstipation, chest pain or shortness of breath, dysuria or hematuria. Denies history of kidney stones. Prior abdominal surgeries includes a right oophorectomy. <Annika Huitron PA-C - Last Filed: 02/18/24 17:58> Related Data Home Medications: Home Medications Medication Instructions Recorded Confirmed cholecalciferol (vitamin D3) 50 1,000 unit PO DAILY 10/30/19 02/12/24 mcg (2,000 unit) tablet multivitamin 1 tablet PO DAILY 10/30/19 02/12/24 pyridoxine (vitamin B6) 100 mg 100 mg PO DAILY 10/30/19 02/12/24 tablet aspirin 81 mg tablet 81 mg PO DAILY 02/01/23 02/12/24 atorvastatin 20 mg tablet 20 mg PO DAILY 02/01/23 02/12/24 omega 1-eby-ysm-fish oil 1,000 mg 1 cap PO BID 01/14/24 02/12/24 (120 mg-180 mg) capsule (Fish Oil) calcium carbonate (Calcium 600) 600 mg PO DAILY 02/12/24 02/12/24 donepezil 5 mg tablet 5 mg PO DAILY 02/12/24 02/12/24 <Annika Huitron PA-C - Last Filed: 02/18/24 17:58> Allergies/Adverse Reactions: Allergies Allergy/AdvReac Type Severity Reaction Status Date / Time No Known Allergies Allergy Verified 02/12/24 11:23 <Annika Huitron PA-C - Last Filed: 02/18/24 17:58> Review of Systems Review of Systems: CONSTITUTIONAL: Denies fever, chills, or sweats. EYES: Denies visual changes, redness, or discharge. ENT: Denies rhinorrhea, congestion, sore throat, or otalgia. CARDIOVASCULAR: Denies chest pain, palpitations, or edema. RESPIRATORY: Denies cough or dyspnea. GASTROINTESTINAL: See HPI GENITOURINARY: Denies dysuria or hematuria. SKIN: Denies rash or itching. MUSCULOSKELETAL: Denies back pain, joint pain, or myalgia. NEUROLOGIC: Denies headache, numbness, or weakness. PSYCHIATRIC: Denies anxiety or depression. <Annika Huitron PA-C - Last Filed: 02/18/24 17:58> [facility] Past Medical History Medical History: Medical History Essential (primary) hypertension Mixed hyperlipidemia Osteopenia Overweight (BMI 25.0-29.9) Type 2 diabetes mellitus with other diabetic neurological complication <Annika Huitron PA-C - Last Filed: 02/18/24 17:58> Surgical History Surgical History: Surgical History History of coronary artery stent placement History of left oophorectomy <Annika Huitron PA-C - Last Filed: 02/18/24 17:58> Family History Family History: Family History Father , Natural cause Unknown family medical history Mother , Natural cause Unknown family medical history <Annika Huitron PA-C - Last Filed: 02/18/24 17:58> Social History Social History: Social History Smoking status: Never smoker Second hand tobacco smoke exposure: No Alcohol intake: never Substance use: never Substance use type: does not use Lack of Transportation: No Lack of Food: Never True Current Housing:
[2024-02-18 12:11] LABS: Add Urine Microscopic? YES
[2024-02-18 12:13] LABS: Alanine Aminotransferase 16 U/L (6-35); Alkaline Phosphatase 56 U/L (38-126); Anion Gap 9 mmol/L (4-12); Aspartate Amino Transferase 27 U/L (14-36); Bilirubin,Total 1.8 mg/dL (0.2-1.3); Blood Urea Nitrogen 22 mg/dL (7-17); Calcium 7.3 mg/dL (8.4-10.2); Carbon Dioxide 20 mmol/L (22-30); Chloride 111 mmol/L (98-107); Estimated Glomerular Filt Rate 48; Glucose 131 mg/dL (65-110); Potassium 2.7 mmol/L (3.4-5.0); Sodium 140 mmol/L (137-145)
--- NOTE | 2024-02-18 12:13 | ECG_ITS ---
SEE SCANNED COPY FOR CONFIRMED REPORT MTDD
[2024-02-18 12:38] LABS: Lipase 106 U/L (23-300); Magnesium 1.4 mg/dL (1.6-2.3)
[2024-02-18] MEDS: LACTATED RINGERS 1,000 ML 999 ML IV CONT (12:47)
[2024-02-18] MEDS: POTASSIUM CHLORIDE INJ 40 MEQ in SODIUM CHLORIDE 0.9% IV 500 ML 130 MEQ IVPB (12:48)
[2024-02-18] MEDS: MAGNESIUM SULF 2 GM/WATER 50ML 2 GM/50 ML BAG IVPB (13:00)
[2024-02-18] MEDS: POTASSIUM CHLORIDE 20 MEQ PACKET (FOR LIQUID) 40 MEQ PO (16:51)
[2024-02-18] MEDS: SULFAMETHOXAZOLE/TRIMETHOPRIM 800/160 MG DS TABLET 1 TAB PO (16:51)
== END 2024-02-18 18:57 | disposition home or self-care (01) ==
PROVIDERS: Emergency Medicine; Emergency Provider Physician Assistant; PCP Family Medicine
DX: N20.1 Calculus of ureter (principal); E87.6 Hypokalemia; E83.42 Hypomagnesemia; N28.1 Cyst of kidney, acquired; K57.90 Diverticulosis of intestine, part unspecified, without perforation or abscess without bleeding; I10 Essential (primary) hypertension; E78.5 Hyperlipidemia, unspecified; E11.9 Type 2 diabetes mellitus without complications
CPT/HCPCS: 36415; 74018; 74177; 80053; 81001; 83690; 83735; 85025; 87086; 93005; 96361; 96365; 96366; 96368; 99284; A9270; J3475; J3480; J7040; J7120; Q9967

== ENCOUNTER 2024-02-25 15:27 | Outpatient (CLI) | payer MEDICARE, OTHER, SELFPAY ==
[2024-02-25 20:37] LABS: Alanine Aminotransferase 21 U/L (6-35); Albumin Level 4.9 g/dL (3.5-5.1); Alkaline Phosphatase 67 U/L (38-126); Anion Gap 9 mmol/L (4-12); Aspartate Amino Transferase 50 U/L (14-36); Bilirubin,Total 0.7 mg/dL (0.2-1.3); Blood Urea Nitrogen 25 mg/dL (7-17); Calcium 9.3 mg/dL (8.4-10.2); Carbon Dioxide 24 mmol/L (22-30); Chloride 105 mmol/L (98-107); Estimated Glomerular Filt Rate 39; Glucose 110 mg/dL (65-110); Potassium 4.7 mmol/L (3.4-5.0); Sodium 138 mmol/L (137-145)
== END 2024-02-25 15:28 | disposition home or self-care (01) ==
PROVIDERS: PCP Family Medicine; Visit Provider Nurse Practitioner
DX: E87.8 Other disorders of electrolyte and fluid balance, not elsewhere classified (principal)
CPT/HCPCS: 36415; 80053

== ENCOUNTER 2024-03-31 09:45 | Outpatient (CLI) | payer MEDICARE, OTHER, SELFPAY ==
--- NOTE | ~2024-03-31 | XR_ITS ---
XR abdomen/kub 1V Ordering provider: Nehal Martell, NEUROPSYCHIATRIC AIDE History: . HX OF KIDNEY STONES/NO CURRENT COMPLAINTS . Comparison: February 18, 2024 FINDINGS: BOWEL: Nonobstructive bowel gas pattern. ORGANOMEGALY: None. SIGNIFICANT PATHOLOGIC CALCIFICATIONS: None. OTHER: No free air is seen under the diaphragm. Degenerative the spine. IMPRESSION: NO ACUTE ABDOMINAL FINDINGS. Reviewed, dictated and finalized at location A.
== END 2024-03-31 09:46 | disposition home or self-care (01) ==
PROVIDERS: PCP Family Medicine; Visit Provider Nurse Practitioner Family
DX: Z87.442 Personal history of urinary calculi (principal)
CPT/HCPCS: 74018

== ENCOUNTER 2024-09-04 07:54 | Outpatient (CLI) | payer MEDICARE, OTHER, SELFPAY ==
[2024-09-04 14:35] LABS: Hematocrit 41.5 % (37.0-47.0); Hemoglobin 13.5 g/dL (12.0-15.0); Mean Corpuscular HGB Conc 32.5 g/dl (32-36); Mean Corpuscular Volume 98.3 fl (80-100); Platelet Count Result 214 k/mm3 (150-375); Red Blood Count 4.22 M/mm3 (4.2-5.4); Red Cell Distribution Width 12.5 % (11.5-14.5); White Blood Count 6.6 K/mm3 (4.5-10.0)
[2024-09-04 15:00] LABS: Creatinine Urine 89.5 mg/dL
[2024-09-04 15:05] LABS: MALB Creatinine Ratio 35.2 mg/g (0-30); Microalbumin Urine Random 31.5 mg/L (0-16.7)
[2024-09-04 15:12] LABS: Alanine Aminotransferase 32 U/L (6-35); Albumin Level 4.9 g/dL (3.5-5.1); Alkaline Phosphatase 68 U/L (38-126); Anion Gap 4 mmol/L (4-12); Aspartate Amino Transferase 107 U/L (14-36); Bilirubin,Total 1.1 mg/dL (0.2-1.3); Blood Urea Nitrogen 18 mg/dL (7-17); Calcium 9.4 mg/dL (8.4-10.2); Carbon Dioxide 31 mmol/L (22-30); Chloride 102 mmol/L (98-107); Cholesterol 191 mg/dL (0-200); Estimated Glomerular Filt Rate 60; Glucose 118 mg/dL (65-110); HDL Direct 74 mg/dL; Potassium 4.5 mmol/L (3.4-5.0); Sodium 137 mmol/L (137-145); Triglycerides 159 mg/dL (<150)
[2024-09-04 15:13] LABS: Vitamin D 25 Hydroxy 53.3 ng/mL
[2024-09-04 15:23] LABS: LDL Cholesterol Direct 80 mg/dL
[2024-09-04 16:01] LABS: Hemoglobin A1C 6.4 % (<5.7)
== END 2024-09-04 07:55 | disposition home or self-care (01) ==
LOC: ANHGOSHLAB 07:56
PROVIDERS: PCP Family Medicine; Visit Provider Nurse Practitioner
DX: E55.9 Vitamin D deficiency, unspecified (principal); E11.9 Type 2 diabetes mellitus without complications; R41.3 Other amnesia; Z79.899 Other long term (current) drug therapy
CPT/HCPCS: 36415; 80053; 80061; 82043; 82306; 83036; 84443; 85027

== ENCOUNTER 2024-10-01 07:40 | Outpatient (CLI) | payer MEDICARE, OTHER, SELFPAY ==
--- NOTE | ~2024-10-01 | US_ITS ---
Limited Abdominal Sonogram: Real-time sonographic imaging of the right upper quadrant was performed. Clinical History: Abnormal serum enzyme levels Findings: The liver appears normal with no evidence of mass lesion or bile duct dilatation. Main por janelle vein demonstrates normal direction of flow. The gallbladder is well distended, and appears normal with no evidence of gallstone or wall thickening. The common bile duct measures 3 mm. The visualize d pancreas, aorta, and IVC are unremarkable. Impression: No significant abnormality seen. Reviewed, dictated and finalized at location M. VISION ENGINEER Impression: No significant abnormality seen.
== END 2024-10-01 07:41 | disposition home or self-care (01) ==
PROVIDERS: PCP Family Medicine; Visit Provider Nurse Practitioner
DX: R74.8 Abnormal levels of other serum enzymes (principal)
CPT/HCPCS: 76705

== ENCOUNTER 2024-11-04 08:59 | Outpatient (CLI) | payer MEDICARE, OTHER, SELFPAY ==
--- OUTSIDE RECORDS SUMMARY | 2024-11-04 09:22 | XMS_ITS | Referral Summary ---
Author Organization [facility] Address [address] [place] [address] Care Team Providers Care Reconciliation Coordinator Name Role Phone Unknown, Provider Primary Care Provider Unavaila ble Source Comments [facility],non-owned Affiliates and Associated Physician Practices is amultiple site organization consisting of ambulatory clinics and hospital sitesin [place], [place], [place] and [place]. This disclosure is being madepursuant to the Care Everywhere program and may not contain all information available regarding this patient. Last updated 18.[facility] [employer] Medications * Be aware that medications may not be up to date on this document. Alwaysverify current medications with the patient. Medication Sig Dispensed Refills Start Date End Date Status blood glucose test strip 1 Strip once daily DX: E11.9 100 strip 3 07/17/2016 Active atorvastatin (LIPITOR) 20 MG tablet Take 0.5 Tabs by mouth once daily 45 tablet 1 04/18/2015 Active losartan (COZAAR) 50 MG tablet Take 1 Tab by mouth once daily Reasons: High Blood Pressure 90 tablet 3 04/18/2015 Active Active Problems Problem Noted Date Diagnosed Date Hyperlipidemia with target LDL less than 100 04/2015 HTN (hypertension) 07/19/2014 Diabetes mellitus, type II 07/19/2014 Overview (05/24/2018): IMO Annual Load Sepsis 07/19/2014 Vomiting 07/19/2014 Diarrhea 07/19/2014 Dysgeusia 01/28/2014 Chest pain 07/20/2013 Overview (05/25/2018): IMO Annual Load CAD (coronary artery disease) 06/25/2012 Antiplatelet or antithrombotic long-term use Overview (05/25/2018): Antiplatelet drug: Clopidogrel (Plavix) Notify the prescribing department, Cardiology, in case of invasive procedure or other questions. ASHD (arteriosclerotic heart disease) 06/13/2012 Overview (05/25/2018): 06/11 GOPAL LAD Acute coronary syndrome 06/13/2012 Osteopenia 04/23/2012 Muscle spasms of neck 04/23/2012 Tortuous colon 04/09/2012 Special screening for malignant neoplasms, colon 03/28/2012 Hand pain 09/26/2011 Vertigo 03/09/2011 Immunizations Name Administration Dates Next Due PNEUMOCOCCAL POLYSAC, ADULT 07/21/2013 TD (AGE 6-ADULT) 07/31/2004 Social History Tobacco Use Types Packs/Day Years Used Date Smoking Tobacco: Never Smokeless Tobacco: Never Alcohol Use Standard Drinks/Week Comments Yes 0 (1 standard drink = 0.6 oz pur e alcohol) Sex and Gender Information Value Date Recorded Sex Assigned at Not on file Gender Identity Not on file Sexual Orientation Not on file Last Filed Vital Signs Vital Sign Reading Time Taken Comments Blood Pressure 138/72 04/18/2015 3:35 AM CDT Pulse - - Temperature - - Respiratory Rate - - Oxygen Saturation - - Inhaled Oxygen Concentration - - Weight 65.5 kg (144 lb 6.4 oz) 04/18/2015 9:35 A M CDT Height 160 cm (5' 3 ) 04/18/2015 9:35 AM CDT Body Mass Index 25.58 04/18/2015 9:35 AM CDT Plan of Treatment Not on file Procedures Procedure Name Priority Date/Time Associated Diagnosis Comments COMPREHENSIVE METABOLIC PANEL FASTING Routine 02/07/2015 7:46 AM CDT HEMOGLOBIN A1C Routine 02/07/2015 7:46 AM CDT from Last 3 Months or Most Recently Relevant to Health Maintenance Results * (ABNORMAL) COMPREHENSIVE METABOLIC PANEL FASTING (02/07/2015 7:46 AM CDT) Sodium 142 136 - 145 mmol/L 02/07/2015 10:21 AM T [facility] Potassium 3.3(L) 3.5 - 5.1 mmol/L 02/07/2015 10:21 AM [facility] Chloride 104 98 - 107 mmol/L 02/07/2015 10:21 AM T [facility] CARBON DIOXIDE 24 23 - 31 mmol/L 02/07/2015 10:21 AM [facility] Anion Gap 14 9 - 18 02/07/2015 10:21 AM T [facility] Glucose Fasting 156(H) 70 - 99 mg/dL 02/07/2015 10:21 AM T [facility] BUN 15 7 - 20 mg/dL 02/07/2015 10:21 AM [facility] Creatinine 0.76 0.60 - 1.10 mg/dL 02/07/2015 10:21 AM T [facility] AST 27 5 - 34 U/L 02/07/2015 10:21 AM T [facility] ALT 21 0 - 55 U/L 02/07/2015 10:21 AM [facility] Alkaline Phosphatase 61 40 - 150 U/L 02/07/2015 10:21 AM T [facility] Bilirubin Total 1.6(H) 0.2 - 1.2 mg/dL 02/07/2015 10:21 AM [facility] Protein Total 8.0 6.0 - 8.3 g/dL 02/07/2015 10:21 AM [facility] Albumin 4.8 3.4 - 4.8 g/dL 02/07/2015 10:21 AM T [facility] Calcium 9.8 8.9 - 10.7 mg/dL 02/07/2015 10:21 AM [facility] GFR 79 >=60 mL/min/1.7 3m2 02/07/2015 10:21 AM [facility] Blood specimen (specimen) BLOOD SPECIMEN / Unknown 02/07/2015 7:46 AM CDT 02/07/2015 7:47 AM CDT [facility] - 02/07/2015 10:21 AM CDT GFR calculated using CKD-EPI equation. For Americans multiply reported GFR result by 1.159. Sky Blum DO LAB - CHEMISTRY [facility] [place] [address] * (ABNORMAL) HEMOGLOBIN A1C (02/07/2015 7:46 AM CDT) Hemoglobin A1c 6.1(H) 4.0 - 6.0 % 02/07/2015 9:57 AM CDT [facility] Comment: <6.0 ?Non Diabetic 6.0-7.0 ??ADA Target Estimated Average Glucose 128 02/07/2015 9:57 AM CDT [facility] Blood specimen (specimen) BLOOD SPECIMEN / Unknown 02/07/2015 7:46 AM CDT 02/07/2015 7:47 AM CDT Sky Blum DO LAB - CHEMISTRY [facility]EM[facility] [place] [address] from Last 3 Months or Most Recently Relevant to Health Maintenance Advance Directives Documents on File Type Date Recorded 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
--- OUTSIDE RECORDS SUMMARY | 2024-11-04 09:23 | XMS_ITS | Clinical Summary ---
Author Organization [facility] Address [address] [place] [address] Care Team Providers Care Personal Protection Specialist Name Role Phone GregkaliaarianeZina Michelle Primary Care Provider [phone] Allergies No known active allergies Medications aspirin 81 mg enteric coated tablet Take 1 tablet (81 mg total) by mouth 09/26/20 11 Active metFORMIN (GLUCOPHAGE) 500 mg tablet Take 1 tablet (500 mg total) by mouth 2 (two) times a day 12/20/19 21 Active multivitamin capsule Take 1 capsule by mouth daily Active pyridoxine (VITAMIN B-6) 100 mg tablet Take 1 tablet (100 mg total) by mouth daily Active tamsulosin (FLOMAX) 0.4 mg extended release capsule Take 1 capsule (0.4 mg total) by mouth daily 02/28/20 24 Active donepeziL (ARICEPT) 10 mg tabletIndicati ons:Mild to Moderate Alzheimer's Type Dementia Take 1 tablet (10 mg total) by mouth daily with breakfast 90 tablet 3 10/15/19 25 Active atorvastatin (LIPITOR) 20 mg tablet Take 1 tablet (20 mg total) by mouth daily Active losartan (COZAAR) 50 mg tablet Take 1 tablet (50 mg total) by mouth daily Active calcium carbonate-kyler min D3 1,500 mg (600mg elemental) -800 unit per tablet Take 1 tablet by mouth daily Active omega-3 fatty acids-fish oil 300-1,000 mg capsule Take 2 capsules (2 g total) by mouth daily Active calcium carbonate-vit D3-min 600 mg calcium- 200 unit tablet Take by mouth 025 Discontinued donepeziL (ARICEPT) 5 mg tabletIndicati ons:Mild to Moderate Alzheimer's Type Dementia Take 1 tablet (5 mg total) by mouth daily with breakfast 90 tablet 3 01/15/20 24 025 Discontinued(Re order) alendronate (FOSAMAX) 70 mg tablet 05/06/20 24 025 Discontinued losartan (COZAAR) 100 mg tablet Take 1 tablet (100 mg total) by mouth daily 05/02/20 24 025 Discontinued calcium carbonate-vit D3-min 600 mg calcium- 200 unit tablet Take by mouth 025 Discontinued Active Problems Problem Noted Date Diagnosed Date Mixed Alzheimer's and vascular dementia 10/15/19 25 Dysnomia 01/15/2024 Vascular dementia without behavioral disturbance 04/18/2023 Assessment & Plan (01/15/2024 10:19 AM CDT): Vascular dementia, (moderate small vessel disease on imaging), possible AD recommended CS check blood pressure at home, recently elevated, CS notes recent cholesterol is high per CS (not able to see in My Chart), she is not on a statin, f/u with primary care provider for this, took Lipitor in the past (not clear why she is not on it currently) Started donepezil/Aricept 5 mg titrate as tolerated, likely has AD as well, Neuropsychiatric Testing scores declining Increase physical exercise Sleep difficulties 10/09/2022 Diarrhea 07/19/2014 Sepsis 07/19/2014 Dysgeusia 01/28/2014 Antiplatelet or antithrombotic long-term use Overview (04/18/2023): Antiplatelet drug: Clopidogrel (Plavix) Notify the prescribing department, Cardiology, in case of invasive procedure or other questions. Antiplatelet drug: Clopidogrel (Plavix) Notify the prescribing department, Cardiology, in case of invasive procedure or other questions. Arteriosclerosis of coronary artery 06/13/2012 Overview (04/18/2023): 06/11 GOPAL LAD 06/11 GOPAL LAD Acute coronary syndrome (CMS/HCC) 06/12/2012 Muscle spasms of neck 04/23/2012 Osteopenia 04/23/2012 Tortuous colon 04/09/2012 Diabetes mellitus, type II 03/14/2012 Overview (04/18/2023): IMO Annual Load IMO Annual Load HTN (hypertension) 03/14/2012 Hyperlipidemia with target LDL less than 100 Chest pain 09/26/2011 Overview (04/18/2023): IMO Annual Load IMO Annual Load Hand pain 09/26/2011 Vertigo 03/09/2011 Encounters Date Type Department Care Team Description 10/15/2024 9:45 AM HEEL BUFFER Office Visit [facility] [address] [place] [address] Poncho, Yue Wheat NP 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); Vascular dementia without behavioral disturbance (HCC) from Last 3 Months Immunizations Name Administration Dates Next Due Influenza, Quadrivalent, Rec ombinant, Egg Free, Preservative Free, Intramuscular 07/11/2020,07/16/2019 Influenza, Trivalent, High D ose, Split, Preservative Free, Intramuscular 06/23/2018,06/09/2016 Pfizer SARS-CoV-2 Monovalent Vaccination (12+ Yrs) PURPLE 01/15/2021,12/25/2020 Pneumococcal Polysaccharide PPV23 07/21/2013 Td, adsorbed 07/31/2004 ZOSTER LIVE 06/09/2016 Surgical History Surgery Date Site/Laterality Comments LEFT OOPHORECTOMY Unclear of details CARDIAC STENT PLACEMENT Medical History Medical History Date Comments HTN (hypertension) HLD (hyperlipidemia) Family History Medical History Relation Name Comments Colon cancer Neg Hx Ovarian cancer Neg Hx Uterine cancer Neg Hx Relation Name Status Comments Father Sister Social History Tobacco Use Types Packs/Day Years Used Date Smoking Tobacco: Never Smokeless Tobacco: Never Tobacco Cessation:Counseling Given: Not Answered Comments Unknown Sex and Gender Information Value Date Recorded Sex Assigned at Not on file Legal Sex Female 6:04 PM HEEL BUFFER Gender Identity Female 04/05/2022 8:21 AM CDT Sexual Orientation Choose not to disclose 2021 8:21 AM CDT Obstetrics History Para Term AB IAB SAB Ectopic Multiple Livin g Live Births 2 2 2 2 Date Outcome GA Total Labor Labor/2nd/3rd Weight Sex Type Anes PTL Bonny A1 A5 Name Clin Term Term Last Filed Vital Signs Vital Sign Reading Time Taken Comments Blood Pressure 126/71 10/15/2024 9:27 AM HEEL BUFFER Pulse 94 10/15/2024 9:27 AM HEEL BUFFER Temperature 36.4 ??C (97.6 ??F) 10/15/2024 9:27 AM CS T Respiratory Rate - - Oxygen Saturation 98% 10/15/2024 9:27 AM HEEL BUFFER Inhaled Oxygen Concentration - - Weight 61.9 kg (136 lb 8 oz) 10/15/2024 9:27 AM HEEL BUFFER Height 155 cm (5' 1.02 ) 10/15/2024 9:27 AM HEEL BUFFER Body Mass Index 25.77 10/15/2024 9:27 AM HEEL BUFFER Plan of Treatment Health Maintenance Due Date Last Done Comments Albumin Creatinine Ratio, Urine 1945 Depression Screening 1945 Fall Risk Assessment 1945 Hemoglobin A1C 1945 Osteoporosis Screening-Bone Density Scan 1945 eGFR 1945 Dilated Eye Exam 1945 Foot Exam 1945 Lipid Panel 1945 Hepatitis B Screening 02/02/1962 DTaP/Tdap/Td Vaccine (1 - Tdap) 08/01/2004 4 Well Visit 65+ 02/02/2009 Pneumococcal vaccine 65+ (2 of 2 - PCV) 07/21/2014 07/21/2013 Zoster Vaccine (2 of 3) 08/04/2016 06/09/2016 Covid-19 Vaccine (3 - 2023-2 5 season) 2024 01/15/2021, 12/25/2020 Influenza Vaccine (#1) 2024 0, 07/16/2019, 06/23/2018, Additional history [place] [address] [place] [address] MEDICARE FOR LIFE MEDICARE FOR LIFE Care Teams Personal Protection Specialist Relationship Specialty Start Date End Date Zina Landeros DO PCP - General Family Medicine 10/28/20
--- OUTSIDE RECORDS SUMMARY | 2024-11-04 09:23 | XMS_ITS | Patient Health Summary ---
Author Organization [facility] Address [address] [place] [address] Care Team Providers Care Well Reactivator Operator Name Role Phone Unknown, Provider Primary Care Provider Unavaila ble Note from [facility],non-owned Affiliates and Associated Physician Practices is amultiple site organization consisting of ambulatory clinics and hospital sitesin [place], [place], [place] and [place]. This disclosure is being madepursuant to the Care Everywhere program and may not contain all information available regarding this patient. Last updated 18.[facility] Medications * Be aware that medications may not be up to date on this document. Alwaysverify current medications with the patient. * blood glucose test strip(Started 07/17/2016) 1 Strip once daily DX: E11.9 3 refills left * atorvastatin (LIPITOR) 20 MG tablet(Started 04/18/2015) Take 0.5 Tabs by mouth once daily 1 refill left * losartan (COZAAR) 50 MG tablet(Started 04/18/2015) Take 1 Tab by mouth once daily Reasons: High Blood Pressure 3 refills left Active Problems Problem Noted Date Diagnosed Date Hyperlipidemia with target LDL less than 100 04/2015 HTN (hypertension) 07/19/2014 Diabetes mellitus, type II 07/19/2014 Sepsis 07/19/2014 Vomiting 07/19/2014 Diarrhea 07/19/2014 Dysgeusia 01/28/2014 Chest pain 07/20/2013 CAD (coronary artery disease) 06/25/2012 Antiplatelet or antithrombotic long-term use ASHD (arteriosclerotic heart disease) 06/13/2012 Acute coronary syndrome 06/13/2012 Osteopenia 04/23/2012 Muscle spasms of neck 04/23/2012 Tortuous colon 04/09/2012 Special screening for malignant neoplasms, colon 03/28/2012 Hand pain 09/26/2011 Vertigo 03/09/2011 Immunizations * PNEUMOCOCCAL POLYSAC, ADULT(Given 07/21/2013) * TD (AGE 6-ADULT)(Given 07/31/2004) Social History Tobacco Use Types Packs/Day Years [...] Mass Index 25.58 04/18/2015 9:35 AM CDT Procedures * MICROALBUMIN URINE RANDOM(Performed 02/07/2015) * COMPREHENSIVE METABOLIC PANEL FASTING(Performed 02/07/2015) * LIPID PROFILE(Performed 02/07/2015) * HEMOGLOBIN A1C(Performed 02/07/2015) * PAP THINPREP W HPV CO TESTING(Performed 02/17/2009) Results * (ABNORMAL) MICROALBUMIN URINE RANDOM (02/07/2015 7:54 AM CDT) Microalbumin Random Urine 53.4 mg/dL 02/07/2015 10:03 AM CDT [facility] Creatinine Urine 231.3 mg/dL 02/08/20 15 10:03 AM CDT [facility] Microalbumin/Crea tinine Ratio 230.9(H) <=24.9 mg/g creat 02/07/2015 10:03 AM CDT [facility] Urine specimen (specimen) URINE SPECIMEN OBTAINED BY CLEAN CATCH PROCEDURE / Unknown 02/07/2015 7:54 AM CDT 02/07/2015 7:54 AM CDT Sky Blum DO LAB - URINE CHEMISTR Y ORDERABLES [address] * (ABNORMAL) COMPREHENSIVE METABOLIC PANEL FASTING (02/07/2015 7:46 AM CDT) Sodium 142 136 - 145 mmol/L 02/07/2015 10:21 AM CDT [facility] Potassium 3.3(L) 3.5 - 5.1 mmol/L 02/07/2015 10:21 AM T [facility] Chloride 104 98 - 107 mmol/L 02/07/2015 10:21 AM T [facility] CARBON DIOXIDE 24 23 - 31 mmol/L 02/07/2015 10:21 AM T [facility] Anion Gap 14 9 - 18 02/07/2015 10:21 AM T [facility] Glucose Fasting 156(H) 70 - 99 mg/dL 02/07/2015 10:21 AM T [facility] BUN 15 7 - 20 mg/dL 02/07/2015 10:21 AM T [facility] Creatinine 0.76 0.60 - 1.10 mg/dL 02/07/2015 10:21 AM T [facility] AST 27 5 - 34 U/L 02/07/2015 10:21 AM T [facility] ALT 21 0 - 55 U/L 02/07/2015 10:21 AM T [facility] Alkaline Phosphatase 61 40 - 150 U/L 02/07/2015 10:21 AM T [facility] Bilirubin Total 1.6(H) 0.2 - 1.2 mg/dL 02/07/2015 10:21 AM T [facility] Protein Total 8.0 6.0 - 8.3 g/dL 02/07/2015 10:21 AM T [facility] Albumin 4.8 3.4 - 4.8 g/dL 02/07/2015 10:21 AM CDT [facility] Calcium 9.8 8.9 - 10.7 mg/dL 02/07/2015 10:21 AM T [facility] GFR 79 >=60 mL/min/1.7 3m2 02/07/2015 10:21 AM CDT [facility] Blood specimen (specimen) BLOOD SPECIMEN / Unknown 02/07/2015 7:46 AM CDT 02/07/2015 7:47 AM CDT Narrative [facility] - 02/07/2015 10:21 AM CDT GFR calculated using CKD-EPI equation. For Americans multiply reported GFR result by 1.159. Sky Blum DO LAB - CHEMISTRY ANTOLIN FERNÁNDEZ Performing Organization Address [facility] de Phone Number [address] * (ABNORMAL) HEMOGLOBIN A1C (02/07/2015 7:46 AM CDT) Hemoglobin A1c 6.1(H) 4.0 - 6.0 % 02/07/2015 9:57 AM CDT [facility] Comment: <6.0 ?Non Diabetic 6.0-7.0 ??ADA Target Estimated Average Glucose 128 02/07/2015 9:57 AM CDT [facility] Blood specimen (specimen) BLOOD SPECIMEN / Unknown 02/07/2015 7:46 AM CDT 02/07/2015 7:47 AM CDT Sky Blum DO LAB - CHEMISTRY ANTOLIN FERNÁNDEZ Performing Organization Address [facility] de Phone Number [address] * (ABNORMAL) LIPID PROFILE (02/07/2015 7:46 AM CDT) Cholesterol 177 <=199 mg/dL 02/07/2015 10:22 AM CDT [facility] Comment: <200 ? Desirable 200-239 ??Borderline >=240 ? High Triglycerides 337(H) <150 mg/dL 02/07/2015 10:22 AM CDT [facility] Comment: Normal ?? <150 Borderline High ??150-199 High ?? 200-499 Very High ?? >=500 HDL 52 >40 mg/dL 02/07/2015 10:22 AM CDT [facility] LDL 58 <=99 mg/dL 02/07/2015 10:22 AM CDT [facility] Comment: <100 mg/dL ?? Optimal 100-129 ?? Near Optimal 130-159 ?? Borderline High 160-189 ?? High >190 ?Very High Non HDL Cholesterol 125 mg/dL 02/07/2015 10:22 AM CDT [facility] CHOL/HDL RATIO 3 % 02/07/2015 10:22 AM CDT [facility] Blood specimen (specimen) BLOOD SPECIMEN / Unknown 02/07/2015 7:46 AM CDT 02/07/2015 7:47 AM CDT Sky Blum DO LAB - CHEMISTRY ANTOLIN FERNÁNDEZ [address] * PAP THINPREP W HPV CO TESTING (02/17/2009 4:09 PM CDT) Pap Thin Prep Reflex HPV SEE SCANNED REPORT 02/23/2009 2:37 PM CDT [facility] CYTOLOG[facility] REF [facility] Other (qualifier value) PART OF UTERINE CERVIX / Unknown 02/17/2009 4:09 PM CDT Sky Blum DO LAB - PATHOLOGY/CYTO LOGY ORDERABLES [facility] CYTOLOG[facility] REF LAB [address] [address] Care Teams Well Reactivator Operator Relationship Specialty Start Date End Date Unknown, Provider PCP - General 11/21/19
--- OUTSIDE RECORDS SUMMARY | 2024-11-04 09:23 | XMS_ITS | Referral Summary ---
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); Vascular dementia without behavioral disturbance (HCC) from Last 3 Months Allergies No known active allergies Medications aspirin [...] order) alendronate (FOSAMAX) 70 mg tablet 05/06/20 025 Discontinued losartan (COZAAR) 100 mg tablet Take 1 tablet (100 mg total) by mouth daily 05/02/20 025 Discontinued calcium carbonate-vit D3-min 600 mg [...] Annual Load Hand pain 09/26/2011 Vertigo 03/09/2011 Immunizations Name Administration Dates Next Due Influenza, Quadrivalent, Rec ombinant, Egg Free, Preservative Free, Intramuscular 07/11/2020,07/16/2019 Influenza, Trivalent, High D ose, Split, Preservative Free, Intramuscular 06/23/2018,06/09/2016 Pfizer SARS-CoV-2 Monovalent Vaccination (12+ Yrs) PURPLE 01/15/2021,12/25/2020 Pneumococcal Polysaccharide PPV23 07/21/2013 Td, adsorbed 07/31/2004 ZOSTER LIVE 06/09/2016 Social History Tobacco Use Types Packs/Day Years Used Date Smoking Tobacco: Never Smokeless Tobacco: Never Tobacco Cessation:Counseling Given: Not Answered Comments Unknown Sex and Gender Information Value Date Recorded Sex Assigned at Not on file Legal Sex Female 6:04 PM SIDEWALK REPAIRER Gender Identity Female 04/05/2022 8:21 AM CDT Sexual Orientation Choose not to disclose 2021 8:21 AM CDT Last Filed Vital Signs Vital Sign Reading Time Taken Comments Blood Pressure 126/71 10/15/2024 9:27 AM SIDEWALK REPAIRER Pulse 94 10/15/2024 9:27 AM SIDEWALK REPAIRER Temperature 36.4 ??C (97.6 ??F) 10/15/2024 9:27 AM CS T Respiratory Rate - - Oxygen Saturation 98% 10/15/2024 9:27 AM SIDEWALK REPAIRER Inhaled Oxygen Concentration - - Weight 61.9 kg (136 lb 8 oz) 10/15/2024 9:27 AM SIDEWALK REPAIRER Height 155 cm (5' 1.02 ) 10/15/2024 9:27 AM SIDEWALK REPAIRER Body Mass Index 25.77 10/15/2024 9:27 AM SIDEWALK REPAIRER Plan of Treatment Not on file Insurance MEDICARE netFactor LIFE MEDICARE FOR LIFE Care Teams Metal Fabricating Supervisor Relationship Specialty Start Date End Date Zina Landeros DO PCP - General Family Medicine 10/28/20
--- OUTSIDE RECORDS SUMMARY | 2024-11-04 09:23 | XMS_ITS | Clinical Summary ---
Author Organization [facility] Address [address] [place] [address] Care Team Providers Care Wall Taper Name Role Phone Unknown, Provider Primary Care Provider Unavaila ble Source Comments [facility],non-owned Affiliates and Associated Physician Practices is amultiple site organization consisting of ambulatory clinics and hospital sitesin [place], [place], [place] and [place]. This disclosure is being madepursuant to the Care Everywhere program and may not contain all information available regarding this patient. Last updated 18.[facility] Box Medications * Be aware that medications may [...] POLYSAC, ADULT 07/21/2013 TD (AGE 6-ADULT) 07/31/2004 Family History Medical History Relation Name Comments Stroke Father at 83yo wi th CVA; Status: Cancer - Uterine Mother Diabetes - Type 2 Mother Status: De ceased Dyslipidemia Sister Relation Name Status Comments Father Mother Sister Social History Tobacco Use Types Packs/Day [...] 04/18/2015 9:35 AM CDT Plan of Treatment Health Maintenance Due Date Last Done Comments ZOSTER VACCINE (1 of 2) 02/02/1994 PNEUMOCOCCAL VACCINE 50+ (2 of 2 - PCV) 07/21/2014 07/21/2013 DTAP/TDAP/TD VACCINES (2 - T d or Tdap) 07/31/2014 07/31/2004 DIABETES-SERUM CREATININE 02/08/2016 02/07/2015 MEDICARE AWV ? 12 MONTHS 04/18/2016 04/18/2015 DIABETES RETINOPATHY SCREENING 06/09/2018 DIABETES-FOOT EXAM WITH MONOFILAMENT 06/09/2018 DIABETES-HGB A1C 06/09/2018 02/07/2015 Respiratory Syncytial Virus (RSV) Vaccine Pt: or over 60 yrs (1 - 1-dose 75+ series) 02/02/2019 COVID-19 VACCINE (2023-2 5 season) 2024 INFLUENZA VACCINE (#1) 2024 DEPRESSION SCREENING 09/30/2024 DIABETES - URINE PROTEIN SCREENING 09/30/2024 BONE DENSITY TESTING Completed 03/06/2012 HEPATITIS B VACCINE Aged Out No longe r eligible based on patient's age to complete this topic HIB VACCINE Aged Out No longer eligi ble based on patient's age to complete this topic HPV VACCINE Aged Out No longer eligi ble based on patient's age to complete this topic MENINGOCOCCAL (Group B) VACCINE Aged Out No longer eligible based on patient's age to complete this topic MENINGOCOCCAL VACCINE Aged Out No ubaldo juan eligible based on patient's age to complete this topic Procedures Procedure Name Priority Date/Time Associated Diagnosis Comments COMPREHENSIVE METABOLIC PANEL FASTING Routine 02/07/2015 7:46 AM CDT HEMOGLOBIN A1C Routine 02/07/2015 7:46 AM CDT from Last 3 Months or Most Recently Relevant to Health Maintenance Results * (ABNORMAL) COMPREHENSIVE METABOLIC PANEL FASTING (02/07/2015 7:46 AM CDT) Sodium 142 136 - 145 mmol/L 02/07/2015 10:21 AM CDT [facility] Potassium 3.3(L) 3.5 - 5.1 mmol/L 02/07/2015 10:21 AM CDT [facility] Chloride 104 98 - 107 mmol/L 02/07/2015 10:21 AM CDT [facility] CARBON DIOXIDE 24 23 - 31 mmol/L 02/07/2015 10:21 AM CDT [facility] Anion Gap 14 9 - 18 02/07/2015 10:21 AM CDT [facility] Glucose Fasting 156(H) 70 - 99 mg/dL 02/07/2015 10:21 AM CDT [facility] BUN 15 7 - 20 mg/dL 02/07/2015 10:21 AM CDT [facility] Creatinine 0.76 0.60 - 1.10 mg/dL 02/07/2015 10:21 AM T [facility] AST 27 5 - 34 U/L 02/07/2015 10:21 AM T [facility] ALT 21 0 - 55 U/L 02/07/2015 10:21 AM T [facility] Alkaline Phosphatase 61 40 - 150 U/L 02/07/2015 10:21 AM T [facility] Bilirubin Total 1.6(H) 0.2 - 1.2 mg/dL 02/07/2015 10:21 AM T [facility] Protein Total 8.0 6.0 - 8.3 g/dL 02/07/2015 10:21 AM T [facility] Albumin 4.8 3.4 - 4.8 g/dL 02/07/2015 10:21 AM T [facility] Calcium 9.8 8.9 - 10.7 mg/dL 02/07/2015 10:21 AM T [facility] GFR 79 >=60 mL/min/1.7 3m2 02/07/2015 10:21 AM T [facility] Blood specimen (specimen) BLOOD SPECIMEN / Unknown 02/07/2015 7:46 AM CDT 02/07/2015 7:47 AM CDT [facility] - 02/07/2015 10:21 AM CDT GFR calculated using CKD-EPI equation. For Americans multiply reported GFR result by 1.159. Sky Blum DO LAB - CHEMISTRY [place] [address], [facility] * (ABNORMAL) HEMOGLOBIN A1C (02/07/2015 7:46 AM CDT) Hemoglobin A1c 6.1(H) 4.0 - 6.0 % 02/07/2015 9:57 AM T [facility] Comment: <6.0 ?Non Diabetic 6.0-7.0 ??ADA Target Estimated Average Glucose 128 02/07/2015 9:57 AM CDT [facility] Blood specimen (specimen) BLOOD SPECIMEN / Unknown 02/07/2015 7:46 AM CDT 02/07/2015 7:47 AM CDT Sky Blum DO LAB - CHEMISTRY ANTOLIN FERNÁNDEZ [address] from Last 3 Months or Most Recently Relevant to Health Maintenance Advance Directives Documents on File Type Date Recorded Patient Hedis Registered Nurse Rn Expl anation Healthcare Power of Hydrogen Braze Furnace Operator 10/11/2011 11:20 AM SIGNED 08/23/04 Care Teams Wall Taper Relationship Specialty Start Date End Date Unknown, Provider PCP - General 11/21/19
[2024-11-04 14:11] LABS: Hemoglobin 14.3 g/dL (12.0-15.0); Mean Corpuscular HGB Conc 33.3 g/dl (32-36); Mean Corpuscular Hemoglobin 31.7 pg (26-34); Mean Corpuscular Volume 95.3 fl (80-100); Mean Platelet Volume 10.3 fl (7.4-10.4); Platelet Count Result 207 k/mm3 (150-375); Red Blood Count 4.51 M/mm3 (4.2-5.4); Red Cell Distribution Width 12.1 % (11.5-14.5); White Blood Count 7.6 K/mm3 (4.5-10.0)
[2024-11-04 15:09] LABS: Alanine Aminotransferase 23 U/L (6-35); Albumin Level 4.6 g/dL (3.5-5.1); Alkaline Phosphatase 60 U/L (38-126); Anion Gap 10 mmol/L (4-12); Aspartate Amino Transferase 89 U/L (14-36); Bilirubin,Total 1.1 mg/dL (0.2-1.3); Blood Urea Nitrogen 18 mg/dL (7-17); Carbon Dioxide 29 mmol/L (22-30); Chloride 100 mmol/L (98-107); Estimated Glomerular Filt Rate 59; Glucose 151 mg/dL (65-110); Lipase 113 U/L (23-300); Potassium 3.9 mmol/L (3.4-5.0); Sodium 139 mmol/L (137-145)
== END 2024-11-04 09:00 | disposition home or self-care (01) ==
LOC: ANHGOSHLAB 09:01
PROVIDERS: PCP Family Medicine; Visit Provider Nurse Practitioner
DX: R74.8 Abnormal levels of other serum enzymes (principal); I10 Essential (primary) hypertension
CPT/HCPCS: 36415; 80053; 83690; 85027

== ENCOUNTER 2025-01-12 08:29 | Outpatient (CLI) | payer MEDICARE, OTHER, SELFPAY ==
--- OUTSIDE RECORDS SUMMARY | 2025-01-12 08:46 | XMS_ITS | Clinical Summary ---
Author Organization [facility] Address [address] [place] [address] Care Team Providers Care Duplicating Machine Mechanic Name Role Phone Unknown, Provider Primary Care Provider Unavaila ble Source Comments [facility],non-owned Affiliates and Associated Physician Practices is amultiple site organization consisting of ambulatory clinics and hospital sitesin [place], [place], [place] and [place]. This disclosure is being madepursuant to the Care Everywhere program and may not contain all information available regarding this patient. Last updated 18.[facility] Lumus Medications * Be aware that medications may not be up to date on this document. Alwaysverify current medications with the patient. blood glucose test strip 1 Strip once [...] 03/28/2012 Hand pain 09/26/2011 Vertigo 03/09/2011 Immunizations Immunization Administration Dates Next Due PNEUMOCOCCAL POLYSAC, ADULT [...] drink = 0.6 oz pur e alcohol) Comments Unknown Sex and Gender Information Value Date Recorded Sex Assigned at Not on file Legal Sex Female 1:33 PM CDT Gender Identity Not on file Sexual Orientation [...] 07/31/2004 DIABETES-SERUM CREATININE 02/08/2016 02/07/2015 MEDICARE AWV 12 MONTHS 04/18/2016 04/18/2015 DIABETES RETINOPATHY SCREENING 06/09/2018 DIABETES-FOOT EXAM WITH MONOFILAMENT 06/09/2018 DIABETES-HGB A1C 06/09/2018 02/07/2015 Respiratory Syncytial Virus (RSV) Vaccine Pt: or over 60 yrs (1 - 1-dose 75+ series) 02/02/2019 COVID-19 VACCINE (2023-2 5 season) 2024 DEPRESSION SCREENING 09/30/2024 DIABETES - URINE PROTEIN SCREENING 09/30/2024 INFLUENZA VACCINE (Season Ended) 2025 BONE DENSITY TESTING Completed 03/06/2012 HEPATITIS B VACCINE Aged Out No longe r eligible based on patient's age to complete this topic HIB VACCINE Aged Out No longer eligi ble based on patient's age to complete this topic HPV VACCINE Aged Out No longer eligi ble based on patient's age to complete this topic MENINGOCOCCAL (Group B) VACC INE SHARED DECISION-MAKING Aged Out No longer eligibl e based on patient's age to complete this topic MENINGOCOCCAL GROUPS A/C/Y/W VACCINE Aged Out No longer eligible b ased on patient's age to complete this topic Procedures Procedure Name Priority Date/Time Associated Diagnosis Comments COMPREHENSIVE METABOLIC PANEL FASTING Routine 02/07/2015 7:46 AM CDT HEMOGLOBIN A1C Routine 02/07/2015 7:46 AM CDT from Last 3 Months or Most Recently Relevant to Health Maintenance Results * (ABNORMAL) COMPREHENSIVE METABOLIC PANEL FASTING (02/07/2015 7:46 AM CDT) Sodium 142 136 - 145 mmol/L 02/07/2015 10:21 AM CDT [facility] Potassium 3.3(L) 3.5 - 5.1 mmol/L 02/07/2015 10:21 AM CDT [facility] Chloride 104 98 - 107 mmol/L 02/07/2015 10:21 AM CDT [facility] CARBON DIOXIDE 24 23 - 31 mmol/L 02/07/2015 10:21 AM CDT [facility] Anion Gap 14 9 - 18 02/07/2015 10:21 AM T [facility] Glucose Fasting 156(H) 70 - 99 mg/dL 02/07/2015 10:21 AM T [facility] BUN 15 7 - 20 mg/dL 02/07/2015 10:21 AM T [facility] Creatinine 0.76 0.60 - 1.10 mg/dL 02/07/2015 10:[address] [facility] AST 27 5 - 34 U/L 02/07/2015 10:21 AM T [facility] ALT 21 0 - 55 U/L 02/07/2015 10:21 AM T [facility] Alkaline Phosphatase 61 40 - 150 U/L 02/07/2015 10:21 AM T [facility] Bilirubin Total 1.6(H) 0.2 - 1.2 mg/dL 02/07/2015 10:[address] [facility] Protein Total 8.0 6.0 - 8.3 g/dL 02/07/2015 10:21 AM T [facility] Albumin 4.8 3.4 - 4.8 g/dL 02/07/2015 10:21 AM T [facility] Calcium 9.8 8.9 - 10.7 mg/dL 02/07/2015 10:[address] [facility] GFR 79 >=60 mL/min/1.7 3m2 02/07/2015 10:[address] [facility] Blood specimen (specimen) BLOOD SPECIMEN / Unknown 02/07/2015 7:46 AM CDT 02/07/2015 7:47 AM CDT Narrative [facility] - 02/07/2015 10:21 AM CDT GFR calculated using CKD-EPI equation. For Americans multiply reported GFR result by 1.159. us Sky Blum DO LAB - CHEMISTRY ORDERABLES Christiane shepard Result [address] [address], [facility] * (ABNORMAL) HEMOGLOBIN A1C (02/07/2015 7:46 AM CDT) Hemoglobin A1c 6.1(H) 4.0 - 6.0 % 02/07/2015 9:57 AM CDT [facility] Comment: <6.0 Non Diabetic 6.0-7.0 ADA Target Estimated Average Glucose 128 02/07/2015 9:57 AM CDT [facility] Blood specimen (specimen) BLOOD SPECIMEN / Unknown 02/07/2015 7:46 AM CDT 02/07/2015 7:47 AM CDT us Sky Blum DO LAB - CHEMISTRY ORDERABLES Christiane shepard Result [address] from Last 3 Months or Most Recently Relevant to Health Maintenance Insurance MEDICARE MEDICARE Member Subscriber Plan / Payer (Ef fective for All Dates) Name:Shamar Fabianaja Member ID:[id number] Relation to Subscriber:Self Name:Micheal Ibanez Subscriber ID:[id number] Payer ID:Not on file Group ID:Not on file Type:Medicare Address: [place] [phone] MEDICARE Member Subscriber Plan / Payer (Ef fective for All Dates) Name:Micheal Ibanez Member ID:[id number] Relation to Subscriber:Self Name:Micheal Ibanez Subscriber ID:[id number] Payer ID:Not on file Group ID:Not on file Type:Medicare Address: [place] [phone] Advance Directives Documents on File Type Date Recorded Patient Systems Analyst Engineer Expl anation Healthcare Power of Prizer Hand 10/11/2011 11:20 AM SIGNED 08/23/04 Care Teams Duplicating Machine Mechanic Relationship Specialty Start Date End Date Unknown, Provider PCP - General 11/21/19
--- OUTSIDE RECORDS SUMMARY | 2025-01-12 08:46 | XMS_ITS | Clinical Summary ---
Author Organization [facility] Address [address] [place] [address] Care Team Providers Care Administrator Pesticide Name Role Phone GregkaliaZina thakkar Primary Care Provider +1- [phone] Allergies No known active allergies Medications aspirin 81 mg enteric coated tablet Take 1 tablet (81 mg total) by mouth 1 Active metFORMIN (GLUCOPHAGE) 500 mg tablet Take 1 tablet (500 mg total) by mouth 2 (two) times a day 1 Active multivitamin capsule Take 1 capsule by mouth daily Active pyridoxine (VITAMIN B-6) 100 mg tablet Take 1 tablet (100 mg total) by mouth daily Active tamsulosin (FLOMAX) 0.4 mg extended release capsule Take 1 capsule (0.4 mg total) by mouth daily 4 Active donepeziL (ARICEPT) 10 mg tabletIndicatio ns:Mild to Moderate Alzheimer's Type Dementia Take 1 tablet (10 mg total) by mouth daily with breakfast 90 tablet 3 5 Active atorvastatin (LIPITOR) 20 mg tablet Take 1 tablet (20 mg total) by mouth daily Active losartan (COZAAR) 50 mg tablet Take 1 tablet (50 mg total) by mouth daily Active calcium carbonate-vitam in D3 1,500 mg (600mg elemental) -800 unit per tablet Take 1 tablet by mouth daily Active omega-3 fatty acids-fish oil 300-1,000 mg capsule Take 2 capsules (2 g total) by mouth daily Active Active Problems Problem Noted Date Diagnosed [...] LAD 06/11 GOPAL LAD Acute coronary syndrome 06/12/2012 Muscle spasms of neck 04/23/2012 Osteopenia 04/23/2012 Tortuous colon 04/09/2012 Diabetes mellitus, type II 03/14/2012 Overview (04/18/2023): IMO Annual Load IMO Annual Load HTN (hypertension) 03/14/2012 Hyperlipidemia with target LDL less than 100 Chest pain 09/26/2011 Overview (04/18/2023): IMO Annual Load IMO Annual Load Hand pain 09/26/2011 Vertigo 03/09/2011 Encounters Date Type Department Care Team Description 10/15/2024 9:45 AM BOAT LOADER Office Visit [facility] [address] [place] [address] Poncho, Yue Wheat NP 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); Vascular dementia without behavioral disturbance (HCC) from Last 3 Months Immunizations Immunization Administration Dates Next Due Influenza, Quadrivalent, Rec [...] on file Legal Sex Female 6:04 PM BOAT LOADER Gender Identity Female 04/05/2022 8:21 AM CDT [...] Comments Blood Pressure 126/71 10/15/2024 9:27 AM BOAT LOADER Pulse 94 10/15/2024 9:27 AM BOAT LOADER Temperature 36.4 C (97.6 F) 10/15/2024 9:27 AM BOAT LOADER Respiratory Rate - - Oxygen Saturation 98% 10/15/2024 9:27 AM BOAT LOADER Inhaled Oxygen Concentration - - Weight 61.9 kg (136 lb 8 oz) 10/15/2024 9:27 AM BOAT LOADER Height 155 cm (5' 1.02 ) 10/15/2024 9:27 AM BOAT LOADER Body Mass Index 25.77 10/15/2024 9:27 AM BOAT LOADER Plan of Treatment Health Maintenance Due Date Last Done Comments Albumin Creatinine Ratio, Urine 1944 Depression Screening 1944 Fall Risk Assessment 1944 Hemoglobin A1C 1944 Osteoporosis Screening-Bone Density Scan 1944 eGFR 1944 Dilated Eye Exam 1944 Foot Exam 1944 Lipid Panel 1944 Hepatitis B Screening 02/02/1962 DTaP/Tdap/Td Vaccine (1 - Tdap) 08/01/2004 Well Visit 65+ 02/02/2009 Pneumococcal vaccine 65+ (2 of 2 - PCV) 07/21/2014 07/21/2013 Zoster Vaccine (2 of 3) 08/04/2016 06/09/2016 Covid-19 Vaccine (3 - 2023-2 5 season) 2024 01/15/2021, 12/25/2020 Influenza Vaccine (#1) 2024 , 07/16/2019, 06/23/2018, Additional [place] [address] MEDICARE [employer] MEDICARE FOR LIFE Care Teams Administrator Pesticide Relationship Specialty Start Date End Date Zina Landeros DO PCP - General Family Medicine 10/28/20
--- OUTSIDE RECORDS SUMMARY | 2025-01-12 08:46 | XMS_ITS | Referral Summary ---
Author Organization [facility] Address [address] [place] [address] Care Team Providers Care Dope Firer Name Role Phone Zina Landeros Primary Care Provider +1- [phone] Encounters Date Type Department Care Team Description 10/15/2024 9:45 AM EMERGENCY ROOM TECHNICIAN Office Visit [address] 6[address] [place] [address] Yue Isaac NP Mixed Alzheimer's [...] Date Mixed Alzheimer's and vascular dementia 10/15/19 Dysnomia 01/15/2024 Vascular dementia without behavioral disturbance [...] Load Hand pain 09/26/2011 Vertigo 03/09/2011 Immunizations Immunization Administration Dates Next Due Influenza, [...] on file Legal Sex Female 6:04 PM EMERGENCY ROOM TECHNICIAN Gender Identity Female 04/05/2022 8:21 AM CDT Sexual Orientation Choose not to disclose 2021 8:21 AM CDT Last Filed Vital Signs Vital Sign Reading Time Taken Comments Blood Pressure 126/71 10/15/2024 9:27 AM EMERGENCY ROOM TECHNICIAN Pulse 94 10/15/2024 9:27 AM EMERGENCY ROOM TECHNICIAN Temperature 36.4 C (97.6 F) 10/15/2024 9:27 AM EMERGENCY ROOM TECHNICIAN Respiratory Rate - - Oxygen Saturation 98% 10/15/2024 9:27 AM EMERGENCY ROOM TECHNICIAN Inhaled Oxygen Concentration - - Weight 61.9 kg (136 lb 8 oz) 10/15/2024 9:27 AM EMERGENCY ROOM TECHNICIAN Height 155 cm (5' 1.02 ) 10/15/2024 9:27 AM EMERGENCY ROOM TECHNICIAN Body Mass Index 25.77 10/15/2024 9:27 AM EMERGENCY ROOM TECHNICIAN Plan of Treatment [place] [address] MEDICARE FOR LIFE [place] [id number] MEDICARE FOR LIFE Care Teams Dope Firer Relationship Specialty Start Date End Date Zina Landeros DO PCP - General Family Medicine 10/28/20
[2025-01-12 11:28] LABS: Hemoglobin A1C 5.9 % (<5.7)
[2025-01-12 11:29] LABS: Alanine Aminotransferase 20 U/L (6-35); Albumin Level 4.4 g/dL (3.5-5.1); Alkaline Phosphatase 63 U/L (38-126); Anion Gap 8 mmol/L (4-12); Aspartate Amino Transferase 47 U/L (14-36); Bilirubin,Total 1.2 mg/dL (0.2-1.3); Blood Urea Nitrogen 20 mg/dL (7-17); Calcium 9.3 mg/dL (8.4-10.2); Carbon Dioxide 30 mmol/L (22-30); Chloride 105 mmol/L (98-107); Cholesterol 185 mg/dL (0-200); Estimated Glomerular Filt Rate > 60; Glucose 113 mg/dL (65-110); HDL Direct 52 mg/dL; Potassium 4.3 mmol/L (3.4-5.0); Sodium 143 mmol/L (137-145); Triglycerides 313 mg/dL (<150)
[2025-01-12 11:40] LABS: LDL Cholesterol Direct 66 mg/dL
[2025-01-12 11:43] LABS: Creatinine Urine 152.6 mg/dL
[2025-01-12 11:49] LABS: MALB Creatinine Ratio 23.3 mg/g (0-30); Microalbumin Urine Random 35.6 mg/L (0-16.7)
[2025-01-12 12:00] LABS: Vitamin D 25 Hydroxy 58.3 ng/mL
== END 2025-01-12 08:30 | disposition home or self-care (01) ==
LOC: ANHGOSHLAB 08:31
PROVIDERS: PCP Family Medicine; Visit Provider Nurse Practitioner
DX: E78.5 Hyperlipidemia, unspecified (principal); E11.9 Type 2 diabetes mellitus without complications; E55.9 Vitamin D deficiency, unspecified
CPT/HCPCS: 36415; 80053; 80061; 82043; 82306; 83036

== ENCOUNTER 2025-02-17 09:35 | Outpatient (CLI) | payer MEDICARE, OTHER, SELFPAY ==
--- OUTSIDE RECORDS SUMMARY | 2025-02-17 10:16 | XMS_ITS | Referral Summary ---
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 Gender Identity Female 04/05/2022 8:21 AM CDT Sexual Orientation Choose not to disclose 2021 8:21 AM CDT Last Filed Vital Signs Vital Sign Reading Time Taken Comments Blood Pressure 126/71 10/15/2024 9:27 AM GLUER AND WEDGER Pulse 94 10/15/2024 9:27 AM GLUER AND WEDGER Temperature 36.4 C (97.6 F) 10/15/2024 9:27 AM GLUER AND WEDGER Respiratory Rate - - Oxygen Saturation 98% 10/15/2024 9:27 AM GLUER AND WEDGER Inhaled Oxygen Concentration - - Weight 61.9 kg (136 lb 8 oz) 10/15/2024 9:27 AM GLUER AND WEDGER Height 155 cm (5' 1.02 ) 10/15/2024 9:27 AM GLUER AND WEDGER Body Mass Index 25.77 10/15/2024 9:27 AM GLUER AND WEDGER Plan of Treatment [place] [address] [place] [address] MEDICARE [facility] Address: [address] [address] FOR LIFE Care Teams Nurse Prn Relationship Specialty Start Date End Date Zina Landeros DO PCP - General Family Medicine 10/28/20
--- OUTSIDE RECORDS SUMMARY | 2025-02-17 10:16 | XMS_ITS | Clinical Summary ---
Author Organization [facility] Address [address] [place] [address] Care Team Providers Care Plastic [facility] Products Assembler Name Role Phone Unknown, Provider Primary Care Provider Unavaila ble Source Comments [facility],non-owned Affiliates and Associated Physician Practices is amultiple site organization consisting of ambulatory clinics and hospital sitesin [place], [place] and [place]. This disclosure is being madepursuant to the Care Everywhere program and may not contain all information available regarding this patient. Last updated 18.[facility] [employer] Medications * Be aware that medications may [...] - 145 mmol/L 02/07/2015 10:21 AM CDT [facility] Potassium 3.3(L) 3.5 - 5.1 mmol/L 02/07/2015 10:21 AM CDT [facility] Chloride 104 98 - 107 mmol/L 02/07/2015 10:21 AM CDT [facility] CARBON DIOXIDE 24 23 - 31 mmol/L 02/07/2015 10:21 AM CDT [facility] Anion Gap 14 9 - 18 02/07/2015 10:21 AM T [facility] Glucose Fasting 156(H) 70 - 99 mg/dL 02/07/2015 10:21 AM T [facility] BUN 15 7 - 20 mg/dL 02/07/2015 10:21 AM T [facility] Creatinine 0.76 0.60 - 1.10 mg/dL 02/07/2015 10:21 AM [facility] AST 27 5 - 34 U/L 02/07/2015 10:21 AM T [facility] ALT 21 0 - 55 U/L 02/07/2015 10:21 AM T [facility] Alkaline Phosphatase 61 40 - 150 U/L 02/07/2015 10:21 AM T [facility] Bilirubin Total 1.6(H) 0.2 - 1.2 mg/dL 02/07/2015 10:21 AM [facility] Protein Total 8.0 6.0 - 8.3 g/dL 02/07/2015 10:21 AM T [facility] Albumin 4.8 3.4 - 4.8 g/dL 02/07/2015 10:21 AM T [facility] Calcium 9.8 8.9 - 10.7 mg/dL 02/07/2015 10:21 AM [facility] GFR 79 >=60 mL/min/1.7 3m2 02/07/2015 10:21 AM [facility] Blood specimen (specimen) BLOOD SPECIMEN / Unknown 02/07/2015 7:46 AM CDT 02/07/2015 7:47 AM CDT Narrative [facility] - 02/07/2015 10:21 AM CDT GFR calculated using CKD-EPI equation. For Americans multiply reported GFR result by 1.159. us Sky Blum DO LAB - CHEMISTRY ORDERABLES Christiane shepard Result [address] [address], [facility] * (ABNORMAL) HEMOGLOBIN A1C (02/07/2015 7:46 AM CDT) Hemoglobin A1c 6.1(H) 4.0 - 6.0 % 02/07/2015 9:57 AM CDT [facility] Comment: <6.0 Non Diabetic 6.0-7.0 ADA Target Estimated Average Glucose 128 02/07/2015 9:57 AM CDT [facility] Blood specimen (specimen) BLOOD SPECIMEN / Unknown 02/07/2015 7:46 AM CDT 02/07/2015 7:47 AM CDT us Sky Blum DO LAB - CHEMISTRY ORDERABLES Christiane shepard Result [address] from Last 3 Months or Most Recently Relevant to Health Maintenance Insurance MEDICARE [employer] Address: [facility] [address] [place] [address] MEDICARE Member Subscriber Plan / Payer (Ef fective for All Dates) Name:Shamar Fabianaja Member ID:[id number] Relation to Subscriber:Self Name:Micheal Ibanez Subscriber ID:[id number] Payer ID:Not on file Group ID:Not on file Type:Medicare Address: [place] [address] MEDICARE Member Subscriber Plan / Payer (Ef fective for All Dates) Name:Micheal Ibanez Member ID:[id number] Relation to Subscriber:Self Name:Micheal Ibanez Subscriber ID:[id number] Payer ID:Not on file Group ID:Not on file Type:Medicare Address: [place] [phone] Advance Directives Documents on File Type Date Recorded Patient Horse Riding Coach Or Instructor Expl anation Healthcare Power of Hand Frame Surgical Elastic Knitter 10/11/2011 11:20 AM SIGNED 08/23/04 Care Teams [facility] Products Assembler Relationship Specialty Start Date End Date Unknown, Provider PCP - General 11/21/19
--- OUTSIDE RECORDS SUMMARY | 2025-02-17 10:16 | XMS_ITS | Clinical Summary ---
Author Organization [facility] Address [address] [place] [address] Care Team Providers Care Build Automation Engineer Name Role Phone GregkaliaZina thakkar Primary Care Provider +1- [phone] Allergies No known active allergies Medications aspirin [...] on file Legal Sex Female 6:04 PM TRAINING REPRESENTATIVE Gender Identity Female 04/05/2022 8:21 AM CDT [...] Comments Blood Pressure 126/71 10/15/2024 9:27 AM TRAINING REPRESENTATIVE Pulse 94 10/15/2024 9:27 AM TRAINING REPRESENTATIVE Temperature 36.4 C (97.6 F) 10/15/2024 9:27 AM TRAINING REPRESENTATIVE Respiratory Rate - - Oxygen Saturation 98% 10/15/2024 9:27 AM TRAINING REPRESENTATIVE Inhaled Oxygen Concentration - - Weight 61.9 kg (136 lb 8 oz) 10/15/2024 9:27 AM TRAINING REPRESENTATIVE Height 155 cm (5' 1.02 ) 10/15/2024 9:27 AM TRAINING REPRESENTATIVE Body Mass Index 25.77 10/15/2024 9:27 AM TRAINING REPRESENTATIVE Plan of Treatment Health Maintenance Due Date [...] 5 season) 2024 01/15/2021, 12/25/2020 Influenza Vaccine (Season Ended) 2025 07/11/2020, 07/16/2019, 06/23/2018, [place] [address] [place] [address] MEDICARE [employer] Care Teams Build Automation Engineer Relationship Specialty Start Date End Date Zina Landeros DO PCP - General Family Medicine 10/28/20
[2025-02-17 13:36] LABS: Alanine Aminotransferase 23 U/L (6-35); Albumin Level 4.6 g/dL (3.5-5.1); Alkaline Phosphatase 63 U/L (38-126); Anion Gap 10 mmol/L (4-12); Aspartate Amino Transferase 62 U/L (14-36); Bilirubin,Total 1.1 mg/dL (0.2-1.3); Blood Urea Nitrogen 15 mg/dL (7-17); Calcium 9.1 mg/dL (8.4-10.2); Carbon Dioxide 26 mmol/L (22-30); Chloride 104 mmol/L (98-107); Estimated Glomerular Filt Rate > 60; Glucose 111 mg/dL (65-110); Potassium 3.8 mmol/L (3.4-5.0); Sodium 140 mmol/L (137-145)
[2025-02-17 13:45] LABS: Vitamin D 25 Hydroxy 62.2 ng/mL
[2025-02-17 15:44] LABS: Creatinine Urine 127.3 mg/dL
[2025-02-17 15:47] LABS: MALB Creatinine Ratio 29.1 mg/g (0-30); Microalbumin Urine Random 37.1 mg/L (0-16.7)
[2025-02-17 16:39] LABS: Hemoglobin A1C 5.9 % (<5.7)
== END 2025-02-17 09:36 | disposition home or self-care (01) ==
PROVIDERS: PCP Family Medicine; Visit Provider Nurse Practitioner
DX: E55.9 Vitamin D deficiency, unspecified (principal); E11.9 Type 2 diabetes mellitus without complications; E78.5 Hyperlipidemia, unspecified; I10 Essential (primary) hypertension
CPT/HCPCS: 36415; 80053; 82043; 82306; 83036

== ENCOUNTER 2025-05-14 08:11 | Outpatient (CLI) | payer MEDICARE, OTHER, SELFPAY ==
--- OUTSIDE RECORDS SUMMARY | 2025-05-14 08:15 | XMS_ITS | Clinical Summary ---
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) 04/21/2025 Telephone [facility] [address] [place] [address] Judit Santana RN from Last 3 Months Immunizations Immunization Administration [...] on file 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 Gender Identity Female 04/05/2022 8:21 AM CDT [...] Sign Reading Time Taken Comments Blood Pressure 126/52 04/21/2025 8:03 AM CDT Pulse 71 04/21/2025 8:03 AM CDT Temperature 37 C (98.6 F) 04/21/2025 8:03 AM CDT Respiratory Rate - - Oxygen Saturation 98% 04/21/2025 8:03 AM CDT Inhaled Oxygen Concentration - - Weight 53.3 kg (117 lb 8 oz) 04/21/2025 8:03 AM CDT Height 155 cm (5' 1.02) 04/21/2025 8:03 AM CDT Body Mass Index 22.19 04/21/2025 8:03 AM CDT Plan of Treatment Health Maintenance [...] season) 2024 01/15/2021, 12/25/2020 Influenza Vaccine (#1) 2025 , 07/16/2019, 06/23/2018, Additional [place] [address] [place] [address] [place] [address] MEDICARE FOR LIFE Care Teams Co Founder And Director Relationship Specialty Start Date End Date Zina Landeros DO PCP - General Family Medicine 10/28/20
--- OUTSIDE RECORDS SUMMARY | 2025-05-14 08:15 | XMS_ITS | Clinical Summary ---
Author Organization [facility] Address [address] [place] [address] Care Team Providers Care Retail Financial Analyst Name Role Phone Unknown, Provider Primary Care Provider Unavaila ble Source Comments [facility],non-owned Affiliates and Associated Physician Practices is amultiple site organization consisting of ambulatory clinics and hospital sitesin [place], [place], [place] and [place]. This disclosure is being madepursuant to the Care Everywhere program and may not contain all information available regarding this patient. Last updated 18.[facility] [employer] Medications * Be aware that medications may [...] A M CDT Height 160 cm (5' 3) 04/18/2015 9:35 AM CDT Body Mass Index [...] - URINE PROTEIN SCREENING 09/30/2024 INFLUENZA VACCINE (#1) 2025 BONE DENSITY TESTING Completed 03/06/2012 HEPATITIS [...] - 145 mmol/L 02/07/2015 10:21 AM CDT [facility] Potassium 3.3(L) 3.5 - 5.1 mmol/L 02/07/2015 10:21 AM CDT [facility] Chloride 104 98 - 107 mmol/L 02/07/2015 10:21 AM CDT [facility] CARBON DIOXIDE 24 23 - 31 mmol/L 02/07/2015 10:21 AM CDT [facility] Anion Gap 14 9 - 18 02/07/2015 10:21 AM T [facility] Glucose Fasting 156(H) 70 - 99 mg/dL 02/07/2015 10:21 AM T [facility] BUN 15 7 - 20 mg/dL 02/07/2015 10:21 AM T [facility] Creatinine 0.76 0.60 - 1.10 mg/dL 02/07/2015 10:21 AM [facility] AST 27 5 - 34 U/L 02/07/2015 10:21 AM T [facility] ALT 21 0 - 55 U/L 02/07/2015 10:21 AM T [facility] Alkaline Phosphatase 61 40 - 150 U/L 02/07/2015 10:21 AM T [facility] Bilirubin Total 1.6(H) 0.2 - 1.2 mg/dL 02/07/2015 10:21 AM [facility] Protein Total 8.0 6.0 - 8.3 g/dL 02/07/2015 10:21 AM T [facility] Albumin 4.8 3.4 - 4.8 g/dL 02/07/2015 10:21 AM T [facility] Calcium 9.8 8.9 - 10.7 mg/dL 02/07/2015 10:21 AM [facility] GFR 79 >=60 mL/min/1.7 3m2 02/07/2015 10:21 AM [facility] Blood specimen (specimen) BLOOD SPECIMEN / Unknown 02/07/2015 7:46 AM CDT 02/07/2015 7:47 AM CDT Narrative [facility] - 02/07/2015 10:21 AM CDT GFR calculated using CKD-EPI equation. For Americans multiply reported GFR result by 1.159. us Sky Blum DO LAB - CHEMISTRY ORDERABLES Christiane shepard Result [address] [address], [facility] * (ABNORMAL) HEMOGLOBIN A1C (02/07/2015 7:46 AM CDT) Hemoglobin A1c 6.1(H) 4.0 - 6.0 % 02/07/2015 9:57 AM CDT [facility] Comment: <6.0 Non Diabetic 6.0-7.0 ADA Target Estimated Average Glucose 128 02/07/2015 9:57 AM CDT [facility] Blood specimen (specimen) BLOOD SPECIMEN / Unknown 02/07/2015 7:46 AM CDT 02/07/2015 7:47 AM CDT us Sky Blum DO LAB - CHEMISTRY ORDERABLES Christiane shepard Result [address] from Last 3 Months or Most Recently Relevant to Health Maintenance Insurance MEDICARE MEDICARE Member Subscriber Plan / Payer (Ef fective for All Dates) Name:Shamar Fabianaja Member ID:[id number] Relation to Subscriber:Self Name:Micheal Ibanez Subscriber ID:[id number] Payer ID:Not on file Group ID:Not on file Type:Medicare Address: [place] [phone] MEDICARE Member Subscriber Plan / Payer (Ef fective for All Dates) Name:Micheal Ibanez Member ID:[id number] Relation to Subscriber:Self Name:Micheal Ibanez Subscriber ID:[id number] Payer ID:Not on file Group ID:Not on file Type:Medicare Address: [place] [phone] Advance Directives Documents on File Type Date Recorded Patient Filer Helper Expl anation Healthcare Power of End Lathe Operator 10/11/2011 11:20 AM SIGNED 08/23/04 Care Teams Retail Financial Analyst Relationship Specialty Start Date End Date Unknown, Provider PCP - General 11/21/19
[2025-05-14 12:55] LABS: Hematocrit 41.2 % (37.0-47.0); Hemoglobin 13.6 g/dL (12.0-15.0); Mean Corpuscular HGB Conc 33.0 g/dl (32-36); Mean Corpuscular Hemoglobin 31.6 pg (26-34); Mean Corpuscular Volume 95.8 fl (80-100); Platelet Count Result 188 k/mm3 (150-375); Red Blood Count 4.30 M/mm3 (4.2-5.4); White Blood Count 6.9 K/mm3 (4.5-10.0)
[2025-05-14 13:25] LABS: Alanine Aminotransferase 19 U/L (6-35); Albumin Level 4.8 g/dL (3.5-5.1); Alkaline Phosphatase 48 U/L (38-126); Anion Gap 10 mmol/L (4-12); Aspartate Amino Transferase 68 U/L (14-36); Bilirubin,Total 1.7 mg/dL (0.2-1.3); Blood Urea Nitrogen 28 mg/dL (7-17); Calcium 9.5 mg/dL (8.4-10.2); Carbon Dioxide 28 mmol/L (22-30); Chloride 99 mmol/L (98-107); Estimated Glomerular Filt Rate 49; Glucose 91 mg/dL (65-110); Potassium 4.0 mmol/L (3.4-5.0); Sodium 137 mmol/L (137-145); Total Protein 8.3 g/dL (6.3-8.2)
[2025-05-14 13:54] LABS: Thyroid Stimulating Hormone 0.103 uIU/mL (0.465-4.680)
[2025-05-14 16:47] LABS: Free T4 Free Thyroxine 1.45 ng/dL (0.78-2.19)
== END 2025-05-14 08:12 | disposition home or self-care (01) ==
LOC: ANHGOSHLAB 08:13
PROVIDERS: PCP Family Medicine; Visit Provider Family Medicine
DX: R17 Unspecified jaundice (principal); E78.5 Hyperlipidemia, unspecified; E03.9 Hypothyroidism, unspecified; I10 Essential (primary) hypertension; E55.9 Vitamin D deficiency, unspecified; Z79.899 Other long term (current) drug therapy
CPT/HCPCS: 36415; 80053; 82248; 82306; 84439; 84443; 85027

== ENCOUNTER 2025-05-21 12:42 | Outpatient (CLI) | payer MEDICARE, OTHER, SELFPAY ==
--- OUTSIDE RECORDS SUMMARY | 2025-05-21 12:46 | XMS_ITS | Clinical Summary ---
Author Organization [facility] Address [address] [address] Care Team Providers Care Certified Recreational Therapist Name Role Phone Unknown, Provider Primary Care Provider Unavaila ble Source Comments [facility],non-owned Affiliates and Associated Physician Practices is amultiple site organization consisting of ambulatory clinics and hospital sitesin [place], [place], [place] and [place]. This disclosure is being madepursuant to the Care Everywhere program and may not contain all information available regarding this patient. Last updated 18.[facility] [employer] Medications * Be aware that medications may [...] - 145 mmol/L 02/07/2015 10:21 AM CDT [facility] Potassium 3.3(L) 3.5 - 5.1 mmol/L 02/07/2015 10:21 AM CDT [facility] Chloride 104 98 - 107 mmol/L 02/07/2015 10:21 AM CDT [facility] CARBON DIOXIDE 24 23 - 31 mmol/L 02/07/2015 10:21 AM CDT [facility] Anion Gap 14 9 - 18 02/07/2015 10:21 AM T [facility] Glucose Fasting 156(H) 70 - 99 mg/dL 02/07/2015 10:21 AM T [facility] BUN 15 7 - 20 mg/dL 02/07/2015 10:21 AM T [facility] Creatinine 0.76 0.60 - 1.10 mg/dL 02/07/2015 10:21 AM [facility] AST 27 5 - 34 U/L 02/07/2015 10:21 AM T [facility] ALT 21 0 - 55 U/L 02/07/2015 10:21 AM T [facility] Alkaline Phosphatase 61 40 - 150 U/L 02/07/2015 10:21 AM T [facility] Bilirubin Total 1.6(H) 0.2 - 1.2 mg/dL 02/07/2015 10:21 AM [facility] Protein Total 8.0 6.0 - 8.3 g/dL 02/07/2015 10:21 AM T [facility] Albumin 4.8 3.4 - 4.8 g/dL 02/07/2015 10:21 AM T [facility] Calcium 9.8 8.9 - 10.7 mg/dL 02/07/2015 10:21 AM [facility] GFR 79 >=60 mL/min/1.7 3m2 02/07/2015 10:21 AM [facility] Blood specimen (specimen) BLOOD SPECIMEN / Unknown 02/07/2015 7:46 AM CDT 02/07/2015 7:47 AM CDT Narrative [facility] - 02/07/2015 10:21 AM CDT GFR calculated using CKD-EPI equation. For Americans multiply reported GFR result by 1.159. us Sky Blum DO LAB - CHEMISTRY ORDERABLES Christiane shepard Result [address] [address], [facility] * (ABNORMAL) HEMOGLOBIN A1C (02/07/2015 7:46 AM CDT) Hemoglobin A1c 6.1(H) 4.0 - 6.0 % 02/07/2015 9:57 AM CDT [facility] Comment: <6.0 Non Diabetic 6.0-7.0 ADA Target Estimated Average Glucose 128 02/07/2015 9:57 AM CDT [facility] Blood specimen (specimen) BLOOD SPECIMEN / Unknown 02/07/2015 7:46 AM CDT 02/07/2015 7:47 AM CDT us Sky Blum DO LAB - CHEMISTRY ORDERABLES Christiane shepard Result [address] from Last 3 Months or Most Recently Relevant to Health Maintenance Insurance MEDICARE MEDICARE Member Subscriber Plan / Payer (Ef fective for All Dates) Name:Shamar Fabianaja Member ID:[id number] Relation to Subscriber:Self Name:Micheal Ibanez Subscriber ID:[id number] Payer ID:Not on file Group ID:Not on file Type:Medicare Address: [place] [phone] MEDICARE Member Subscriber Plan / Payer (Ef fective for All Dates) Name:Micheal Ibanez Member ID:[id number] Relation to Subscriber:Self Name:Micheal Ibanez Subscriber ID:[id number] Payer ID:Not on file Group ID:Not on file Type:Medicare Address: [place] [phone] Advance Directives Documents on File Type Date Recorded Patient Adobe Developer Expl anation Healthcare Power of Supervisor Pressing Department 10/11/2011 11:20 AM SIGNED 08/23/04 Care Teams Certified Recreational Therapist Relationship Specialty Start Date End Date Unknown, Provider PCP - General 11/21/19
--- OUTSIDE RECORDS SUMMARY | 2025-05-21 12:46 | XMS_ITS | Clinical Summary ---
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) 04/21/2025 Telephone [facility] [place] [address] [place] [address] Judit Santana, ASHVIN from Last 3 Months Immunizations Immunization Administration [...] on file 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
[2025-05-21 18:53] LABS: Iron 129 ug/dL (37-170)
[2025-05-21 19:05] LABS: Percent Iron Saturation 52 % (20-50)
[2025-05-21 19:35] LABS: Ferritin 283.00 ng/mL (11.1-264)
[2025-05-21 19:41] LABS: Vitamin B12 821.0 pg/mL (239-931)
== END 2025-05-21 12:43 | disposition home or self-care (01) ==
LOC: ANHGOSHLAB 12:44
PROVIDERS: PCP Family Medicine; Visit Provider Family Medicine
DX: D64.9 Anemia, unspecified (principal)
CPT/HCPCS: 36415; 82607; 82728; 83540; 83550

== ENCOUNTER 2025-06-07 10:02 | Outpatient (CLI) | payer MEDICARE, OTHER, SELFPAY ==
--- OUTSIDE RECORDS SUMMARY | 2025-06-07 10:21 | XMS_ITS | Clinical Summary ---
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) 04/21/2025 Telephone [facility] [place] [address] [place] [address] Judit Santana, ASHVIN from Last 3 Months [...] on file Legal Sex Female 6: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
--- OUTSIDE RECORDS SUMMARY | 2025-06-07 10:21 | XMS_ITS | Clinical Summary ---
Author Organization [facility] Address [address] [place] [address] Care Team Providers Care Sparmaker Name Role Phone Unknown, Provider Primary Care Provider Unavaila ble Source Comments [facility],non-owned Affiliates and Associated Physician Practices is amultiple site organization consisting of ambulatory clinics and hospital sitesin [place], [place], [place] and [place]. This disclosure is being madepursuant to the Care Everywhere program and may not contain all information available regarding this patient. Last updated 18.[facility] [employer] Medications * Be aware that medications may [...] yrs (1 - 1-dose 75+ series) 02/02/2019 DEPRESSION SCREENING 09/30/2024 DIABETES - URINE PROTEIN SCREENING 09/30/2024 COVID-19 VACCINE (1 - 2023-2 5 season) 2025 INFLUENZA VACCINE (#1) 2025 BONE DENSITY TESTING [...] - 145 mmol/L 02/07/2015 10:21 AM CDT [facility] Potassium 3.3(L) 3.5 - 5.1 mmol/L 02/07/2015 10:21 AM CDT [facility] Chloride 104 98 - 107 mmol/L 02/07/2015 10:21 AM CDT [facility] CARBON DIOXIDE 24 23 - 31 mmol/L 02/07/2015 10:21 AM CDT [facility] Anion Gap 14 9 - 18 02/07/2015 10:21 AM T [facility] Glucose Fasting 156(H) 70 - 99 mg/dL 02/07/2015 10:21 AM T [facility] BUN 15 7 - 20 mg/dL 02/07/2015 10:21 AM T [facility] Creatinine 0.76 0.60 - 1.10 mg/dL 02/07/2015 10:[address] [facility] AST 27 5 - 34 U/L 02/07/2015 10:21 AM T [facility] ALT 21 0 - 55 U/L 02/07/2015 10:21 AM T [facility] Alkaline Phosphatase 61 40 - 150 U/L 02/07/2015 10:21 AM T [facility] Bilirubin Total 1.6(H) 0.2 - 1.2 mg/dL 02/07/2015 10:[address] [facility] Protein Total 8.0 6.0 - 8.3 g/dL 02/07/2015 10:21 AM T [facility] Albumin 4.8 3.4 - 4.8 g/dL 02/07/2015 10:21 AM T [facility] Calcium 9.8 8.9 - 10.7 mg/dL 02/07/2015 10:[address] [facility] GFR 79 >=60 mL/min/1.7 3m2 02/07/2015 10:[address] [facility] Blood specimen (specimen) BLOOD SPECIMEN / Unknown 02/07/2015 7:46 AM CDT 02/07/2015 7:47 AM CDT Narrative [facility] - 02/07/2015 10:21 AM CDT GFR calculated using CKD-EPI equation. For Americans multiply reported GFR result by 1.159. us Sky Blum DO LAB - CHEMISTRY ORDERABLES Christiane shepard Result [address] [address], [facility] * (ABNORMAL) HEMOGLOBIN A1C (02/07/2015 7:46 AM CDT) Hemoglobin A1c 6.1(H) 4.0 - 6.0 % 02/07/2015 9:57 AM CDT [facility] Comment: <6.0 Non Diabetic 6.0-7.0 ADA Target Estimated Average Glucose 128 02/07/2015 9:57 AM CDT [facility] Blood specimen (specimen) BLOOD SPECIMEN / Unknown 02/07/2015 7:46 AM CDT 02/07/2015 7:47 AM CDT us Sky Blum DO LAB - CHEMISTRY ORDERABLES Christiane shepard Result [address] from Last 3 Months or Most Recently Relevant to Health Maintenance Insurance MEDICARE MEDICARE Member Subscriber Plan / Payer (Ef fective for All Dates) Name:Shamar Fabianaja Member ID:[id number] Relation to Subscriber:Self Name:Micheal Ibanez Subscriber ID:[id number] Payer ID:Not on file Group ID:Not on file Type:Medicare Address: [place] [id number] MEDICARE Member Subscriber Plan / Payer (Ef fective for All Dates) Name:Micheal Ibanez Member ID:[id number] Relation to Subscriber:Self Name:Micheal Ibanez Subscriber ID:[id number] Payer ID:Not on file Group ID:Not on file Type:Medicare Address: [place] [phone] Advance Directives Documents on File Type Date Recorded Patient Director Of Clinical Education Expl anation Healthcare Power of Rug Washer 10/11/2011 11:20 AM SIGNED 08/23/04 Care Teams Sparmaker Relationship Specialty Start Date End Date Unknown, Provider PCP - General 11/21/19
[2025-06-07 13:18] LABS: Free T4 Free Thyroxine 1.07 ng/dL (0.78-2.19)
[2025-06-07 13:23] LABS: Anion Gap 6 mmol/L (4-12); Blood Urea Nitrogen 13 mg/dL (7-17); Calcium 9.1 mg/dL (8.4-10.2); Carbon Dioxide 28 mmol/L (22-30); Chloride 105 mmol/L (98-107); Estimated Glomerular Filt Rate > 60; Glucose 90 mg/dL (65-110); Potassium 4.3 mmol/L (3.4-5.0); Sodium 139 mmol/L (137-145)
[2025-06-07 14:00] LABS: Thyroid Stimulating Hormone 0.918 uIU/mL (0.465-4.680)
== END 2025-06-07 10:03 | disposition home or self-care (01) ==
LOC: ANHGOSHLAB 10:02
PROVIDERS: PCP Family Medicine; Visit Provider Family Medicine
DX: E78.5 Hyperlipidemia, unspecified (principal); Z79.899 Other long term (current) drug therapy; R79.89 Other specified abnormal findings of blood chemistry
CPT/HCPCS: 36415; 80048; 84439; 84443

== ENCOUNTER 2025-07-20 09:01 | Outpatient (CLI) | payer MEDICARE, OTHER, SELFPAY ==
--- NOTE | ~2025-07-20 | XR_ITS ---
EXAMINATION: XR abdomen/kub 1V DATE: 07/20/2025 09:36 INDICATION: Right renal stone TECHNIQUE: A supine view of the abdomen on 2 radiographs was obtained. COMPARISON: CT abdomen and pelvis 10/25/2024 FINDINGS: Moderate amount of air and stool in nondilated large bowel. There are a few less than 1.0 cm calcifications projecting over the pelvis which may represent phleboliths, however, a distal ureteral stone or bladder stone or possible. Bones appear osteopenic. IMPRESSION: 1. Nonspecific abdomen with a moderate amount of stool. If symptoms persist or worsen, consider a short-term follow-up study or CT imaging for further assessment. Reviewed, dictated and finalized at location Q. IMPRESSION: 1. Nonspecific abdomen with a moderate amount of stool. If symptoms persist or worsen, consider a short-term follow-up study or CT imag ing for further assessment.
--- OUTSIDE RECORDS SUMMARY | 2025-07-20 10:16 | XMS_ITS | Clinical Summary ---
Author Organization [facility] Address [address] [place] [address] Care Team Providers Care Loan Broker Name Role Phone Unknown, Provider Primary Care Provider Unavaila ble Source Comments [facility],non-owned Affiliates and Associated Physician Practices is amultiple site organization consisting of ambulatory clinics and hospital sitesin [place], [place], [place] and [place]. This disclosure is being madepursuant to the Care Everywhere program and may not contain all information available regarding this patient. Last updated 18.[facility] [employer] Medications * Be aware that medications may [...] - 145 mmol/L 02/07/2015 10:21 AM CDT [facility] Potassium 3.3(L) 3.5 - 5.1 mmol/L 02/07/2015 10:21 AM CDT [facility] Chloride 104 98 - 107 mmol/L 02/07/2015 10:21 AM CDT [facility] CARBON DIOXIDE 24 23 - 31 mmol/L 02/07/2015 10:21 AM CDT [facility] Anion Gap 14 9 - 18 02/07/2015 10:21 AM T [facility] Glucose Fasting 156(H) 70 - 99 mg/dL 02/07/2015 10:21 AM T [facility] BUN 15 7 - 20 mg/dL 02/07/2015 10:21 AM T [facility] Creatinine 0.76 0.60 - 1.10 mg/dL 02/07/2015 10:21 AM [facility] AST 27 5 - 34 U/L 02/07/2015 10:21 AM T [facility] ALT 21 0 - 55 U/L 02/07/2015 10:21 AM T [facility] Alkaline Phosphatase 61 40 - 150 U/L 02/07/2015 10:21 AM T [facility] Bilirubin Total 1.6(H) 0.2 - 1.2 mg/dL 02/07/2015 10:21 AM [facility] Protein Total 8.0 6.0 - 8.3 g/dL 02/07/2015 10:21 AM T [facility] Albumin 4.8 3.4 - 4.8 g/dL 02/07/2015 10:21 AM T [facility] Calcium 9.8 8.9 - 10.7 mg/dL 02/07/2015 10:21 AM [facility] GFR 79 >=60 mL/min/1.7 3m2 02/07/2015 10:21 AM [facility] Blood specimen (specimen) BLOOD SPECIMEN / Unknown 02/07/2015 7:46 AM CDT 02/07/2015 7:47 AM CDT Narrative [facility] - 02/07/2015 10:21 AM CDT GFR calculated using CKD-EPI equation. For Americans multiply reported GFR result by 1.159. us Sky Blum DO LAB - CHEMISTRY ORDERABLES Christiane shepard Result [address] [address], [facility] * (ABNORMAL) HEMOGLOBIN A1C (02/07/2015 7:46 AM CDT) Hemoglobin A1c 6.1(H) 4.0 - 6.0 % 02/07/2015 9:57 AM CDT [facility] Comment: <6.0 Non Diabetic 6.0-7.0 ADA Target Estimated Average Glucose 128 02/07/2015 9:57 AM CDT [facility] Blood specimen (specimen) BLOOD SPECIMEN / Unknown 02/07/2015 7:46 AM CDT 02/07/2015 7:47 AM CDT us Sky Blum DO LAB - CHEMISTRY ORDERABLES Christiane shepard Result [address] from Last 3 Months or Most Recently Relevant to Health Maintenance Insurance MEDICARE MEDICARE Member Subscriber Plan / Payer (Ef fective for All Dates) Name:Shamar Fabianaja Member ID:[id number] Relation to Subscriber:Self Name:Micheal Ibanez Subscriber ID:[id number] Payer ID:Not on file Group ID:Not on file Type:Medicare Address: [place] [id number] MEDICARE Member Subscriber Plan / Payer (Ef fective for All Dates) Name:Micheal Ibanez Member ID:[id number] Relation to Subscriber:Self Name:Micheal Ibanez Subscriber ID:[id number] Payer ID:Not on file Group ID:Not on file Type:Medicare Address: [place] [phone] Advance Directives Documents on File Type Date Recorded Patient Pin Feather Machine Operator Expl anation Healthcare Power of Division Manager 10/11/2011 11:20 AM SIGNED 08/23/04 Care Teams Loan Broker Relationship Specialty Start Date End Date Unknown, Provider PCP - General 11/21/19
--- OUTSIDE RECORDS SUMMARY | 2025-07-20 10:16 | XMS_ITS | Clinical Summary ---
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
== END 2025-07-20 09:02 | disposition home or self-care (01) ==
PROVIDERS: PCP Family Medicine; Visit Provider Urology
DX: N20.0 Calculus of kidney (principal)
CPT/HCPCS: 74018

== ENCOUNTER 2025-08-16 08:23 | Emergency (ER) | payer MEDICARE, OTHER, SELFPAY ==
--- NOTE | 2025-08-16 08:27 | ED.ABDPAIN ---
HPI - Abdominal Pain General Stated Complaint: Left Side Flank Pain Time Seen by Provider: 08/16/25 08:27 Source: patient Mode of arrival: ambulatory Limitations: no limitations Related Data Home Medications ?Medication ?Instructions ?Recorded ?Confirmed ?Last Taken ?Type cholecalciferol (vitamin D3) 50 1,000 unit PO DAILY 10/30/19 05/13/25 Unknown History mcg (2,000 unit) tablet multivitamin 1 tablet PO DAILY 10/30/19 05/13/25 Unknown History pyridoxine (vitamin B6) 100 mg 100 mg PO DAILY 10/30/19 05/13/25 Unknown History tablet aspirin 81 mg tablet 81 mg PO DAILY 02/01/23 05/13/25 Unknown History omega 8-ypc-lxk-fish oil 1,000 mg 1 cap PO BID 01/14/24 05/13/25 Unknown History (120 mg-180 mg) capsule (Fish Oil) calcium carbonate (Calcium 600) 600 mg PO DAILY 02/12/24 05/13/25 Unknown History donepezil 10 mg tablet mg PO DAILY 10/28/24 05/13/25 Unknown History Allergies Allergy/AdvReac Type Severity Reaction Status Date / Time No Known Allergies Allergy Verified 05/24/25 09:18 [facility] Past Medical History Medical History Overweight (BMI 25.0-29.9) Osteopenia Essential (primary) hypertension Mixed hyperlipidemia Type 2 diabetes mellitus with other diabetic neurological complication Surgical History Surgical History History of coronary artery stent placement History of left oophorectomy Family History Family History Father , Natural cause Unknown family medical history Mother , Natural cause Unknown family medical history Social History Social History Smoking status: Never smoker Second hand tobacco smoke exposure: No Alcohol intake: never Substance use: never Substance use type: does not use Lack of Transportation: No Lack of Food: Never True Current Housing: Decline to Answer Concerned About Future Housing: Decline to Answer Difficulty Paying Gas/Electric Bills: No Difficulty Paying for Meds: No Currently Unemployed: No Education: High School Diploma/GED Difficulty w/ Childcare or Family Care: No Living arrangements: with family Additional living arrangements comments: with sp Occupation/Education: retired Gender identity (if verbalized by the patient): Female Sexual Orientation (if Verbalized by the Patient): Straight or Heterosexual Spiritual care concerns: No Discharge Plan Discharge Patient Language: Maori Prescriptions: No Action aspirin 81 mg tablet 81 mg PO DAILY cholecalciferol (vitamin D3) 2,000 unit tablet 1,000 unit PO DAILY multivitamin Tablet 1 tablet PO DAILY pyridoxine (vitamin B6) 100 mg tablet 100 mg PO DAILY omega 9-wyg-uar-fish oil [Fish Oil] 1,000 mg (120 mg-180 mg) capsule 1 cap PO BID calcium carbonate [Calcium 600] 600 mg calcium (1,500 mg) tablet 600 mg PO DAILY donepezil 10 mg tablet PO DAILY potassium chloride 20 mEq tablet extended release 20 meq PO DAILY 7 Days Qty: 7 0RF losartan 100 mg tablet See Rx Instructions .ROUTE .COMPLEX Qty: 90 1RF Dose Instruction: TAKE 1 TABLET BY MOUTH DAILY Rx Instructions: TAKE 1 TABLET BY MOUTH DAILY alendronate 70 mg tablet 70 mg PO WEEKLY Qty: 12 1RF metformin 500 mg tablet 500 mg PO BID Qty: 180 1RF mirtazapine 7.5 mg tablet 7.5 mg PO QHS Qty: 90 0RF atorvastatin 20 mg tablet 20 mg PO DAILY Qty: 90 1RF Follow-up/Referrals: Zina Landeros DO [Primary Care Provider, Family Practice]
[2025-08-16 08:33] VITALS: BP 122/59; PULSE 73; RESP 18; TEMP 36.8; O2SAT 100
--- NOTE | 2025-08-16 08:40 | ED.SKABFB ---
HPI - Skin/Abscess/Foreign Bdy General Chief complaint: Skin/Abscess/Foreign Body Stated complaint: Left Side Flank Pain Time Seen by Provider: 08/16/25 08:27 Source: patient and family Mode of arrival: ambulatory Limitations: no limitations History of Present Illness HPI narrative: Ana Luisa is an 80 year old female patient presenting to the clinic today with c/o left side chest wall pain just under left breast x 1 week. She denies any injury. No increase in pain with inspiration. No uri symptoms or cough. Denies any shortness of breath. Has had a heart stent in 2011. Related Data Home Medications ?Medication ?Instructions ?Recorded ?Confirmed ?Last Taken ?Type cholecalciferol (vitamin D3) 50 1,000 unit PO DAILY 10/30/19 05/13/25 Unknown History mcg (2,000 unit) tablet multivitamin 1 tablet PO DAILY 10/30/19 05/13/25 Unknown History pyridoxine (vitamin B6) 100 mg 100 mg PO DAILY 10/30/19 05/13/25 Unknown History tablet aspirin 81 mg tablet 81 mg PO DAILY 02/01/23 05/13/25 Unknown History omega 0-voz-rot-fish oil 1,000 mg 1 cap PO BID 01/14/24 05/13/25 Unknown History (120 mg-180 mg) capsule (Fish Oil) calcium carbonate (Calcium 600) 600 mg PO DAILY 02/12/24 05/13/25 Unknown History donepezil 10 mg tablet mg PO DAILY 10/28/24 05/13/25 Unknown History Allergies Allergy/AdvReac Type Severity Reaction Status Date / Time No Known Allergies Allergy Verified 08/16/25 08:42 Review of Systems Review of Systems: Pertinent positives per HPI. Patient denies any fever, chills, headache, visual changes, dizziness, cough, runny nose, sore throat, shortness of breath, chest pain, palpitations, nausea, vomiting, diarrhea, constipation, abdominal pain, or any urinary issues. [facility] Past Medical History Medical History Overweight (BMI 25.0-29.9) Osteopenia Essential (primary) hypertension Mixed hyperlipidemia Type 2 diabetes mellitus with other diabetic neurological complication Surgical History Surgical History History of coronary artery stent placement History of left oophorectomy Family History Family History Father , Natural cause Unknown family medical history Mother , Natural cause Unknown family medical history Social History Social History Smoking status: Never smoker Second hand tobacco smoke exposure: No Alcohol intake: never Substance use: never Substance use type: does not use Lack of Transportation: No Lack of Food: Never True Current Housing: Decline to Answer Concerned About Future Housing: Decline to Answer Difficulty Paying Gas/Electric Bills: No Difficulty Paying for Meds: No Currently Unemployed: No Education: High School Diploma/GED Difficulty w/ Childcare or Family Care: No Living arrangements: with family Additional living arrangements comments: with sp Occupation/Education: retired Gender identity (if verbalized by the patient): Female Sexual Orientation (if Verbalized by the Patient): Straight or Heterosexual Spiritual care concerns: No Comments At the time of my signature, I reviewed and agree with the nursing past medical, surgical, social, and family history. There is no relevant family history pertinent to the patient complaint. Exam Narrative: General: Well-developed, well nourished, in no apparent distress Head: Normocephalic, atraumatic. Cardio: Regular rate and rhythm, s1 and s2 normal, no murmur appreciated. Resp: Clear to auscultation bilaterally, no rhonchi, rales, wheezing or rubs. Integumentary: [place], warm, and dry, red, raised, erythematous base rash with vesicular lesions to the left lower breast and the chest wall just below the left breast. Course Course Emergency Course: Portions of this record may have been created with voice recognition software. Level of Care: Express Care Visit Vital Signs Vital signs: Vital Signs Temperature 36.8 C 08/16/25 08:33 Pulse Rate 73 08/16/25 08:33 Respiratory Rate 18 08/16/25 08:33 Blood Pressure 122/59 L 08/16/25 08:33 Pulse Oximetry 100 08/16/25 08:33 Oxygen Delivery Room Air 08/16/25 08:33 Temperature 36.8 C 08/16/25 08:33 Pulse Rate 73 11/17/25 08:33 Respiratory Rate 18 08/16/25 08:33 Blood Pressure 122/59 L 08/16/25 08:33 Pulse Oximetry 100 08/16/25 08:33 Oxygen Delivery Room Air 08/16/25 08:33 Vital signs reviewed MDM - Skin/Abscess/Foreign Bdy MDM Narrative Medical decision making narrative: At the time of visit patient is resting comfortably on the exam table. Patient appears to be nontoxic. C/o left side chest wall pain just under left breast x 1 week. She denies any injury. No increase in pain with inspiration. No uri symptoms or cough. Denies any shortness of breath. Has had a heart stent in 2011. On exam patient has red raised erythematous base rash with vesicular lesions to the left anterior chest wall just below the breast and some of the rash is on the left lower breast. Rash is painful to the palpation. thinks that she has had a shingles shot in the past. Lung sounds are clear, heart rates regular rate and rhythm. Plan: I suspect patient has herpes zoster. Prescription for Valtrex was sent to the pharmacy. Supportive measures were discussed with the patient and they voiced understanding discharge instructions and agrees to treatment plan. Return precautions reviewed Discharge Plan Discharge Clinical Impression: Herpes zoster Qualifiers: Herpes zoster complications: without complications Qualified Code(s): B02.9 - Zoster without complications Patient Disposition: Home Condition: Stable Instructions: Antibiotic Form, Shingles (ED) Additional Instructions: Take acyclovir as prescribed Increase fluids and stay well hydrated May take Tylenol/Motrin as needed for pain May apply lidocaine patch to the affected area to help alleviate pain Keep the area clean and dry If the area is blistering/draining this is considered contagious and keep it covered. Shingles is no longer contagious when the rash has scabbed over or has resolved. Stay away from person's, immunocompromised persons, or any persons who of not received their chicken pox vaccine/or has not had chickenpox. Follow-up with your primary care doctor in 5-7 days Go to the emergency room if her symptoms worsen. Patient Language: Khmer Prescriptions: New valacyclovir 1 gram tablet 1,000 mg PO Q8H 7 Days Qty: 21 0RF No Action aspirin 81 mg tablet 81 mg PO DAILY cholecalciferol (vitamin D3) 2,000 unit tablet 1,000 unit PO DAILY multivitamin Tablet 1 tablet PO DAILY pyridoxine (vitamin B6) 100 mg tablet 100 mg PO DAILY omega 0-iqn-twn-fish oil [Fish Oil] 1,000 mg (120 mg-180 mg) capsule 1 cap PO BID calcium carbonate [Calcium 600] 600 mg calcium (1,500 mg) tablet 600 mg PO DAILY donepezil 10 mg tablet PO DAILY losartan 100 mg tablet See Rx Instructions .ROUTE .COMPLEX Qty: 90 1RF Dose Instruction: TAKE 1 TABLET BY MOUTH DAILY Rx Instructions: TAKE 1 TABLET BY MOUTH DAILY alendronate 70 mg tablet 70 mg PO WEEKLY Qty: 12 1RF metformin 500 mg tablet 500 mg PO BID Qty: 180 1RF mirtazapine 7.5 mg tablet 7.5 mg PO QHS Qty: 90 0RF atorvastatin 20 mg tablet 20 mg PO DAILY Qty: 90 1RF Follow-up/Referrals: Zina Landeros DO [Primary Care Provider, [facility]] Time of Disposition: 08:43 Quality NIHSS Nursing Documentation ED NIHSS nursing documentation: reviewed/agree
== END 2025-08-16 08:53 | disposition home or self-care (01) ==
PROVIDERS: Emergency Provider Nurse Practitioner Family; PCP Family Medicine
DX: B02.9 Zoster without complications (principal); I10 Essential (primary) hypertension; E11.49 Type 2 diabetes mellitus with other diabetic neurological complication; Z79.84 Long term (current) use of oral hypoglycemic drugs; E78.2 Mixed hyperlipidemia; M85.80 Other specified disorders of bone density and structure, unspecified site; Z95.5 Presence of coronary angioplasty implant and graft; Z79.82 Long term (current) use of aspirin
CPT/HCPCS: 99213; G0463